=== PATIENT | female | born 1955 | race Caucasian/White ===

== ENCOUNTER → 2018-01-10 10:21 | Outpatient (CLI) | payer OTHER, SELFPAY ==
--- NOTE | 2018-01-10 10:28 | US_ITS ---
STUDY: ULTRASOUND OF THE FEMALE PELVIS - COMPLETE REASON FOR EXAM: Female, 62 years old. Postmenopausal bleeding. LMP: The patient is postmenopausal. TECHNIQUE: Transabdominal and Transvaginal TECHNICAL QUALITY: Adequate. COMPARISON: None. FINDINGS: The uterus is retroverted and is in a midline position. The uterus measures 5.3 cm x 5.0 cm x 2.3 cm. Normal uterine cervix. The endometrium measures 3 mm in thickness, and is fluid distended. There is no demonstrated endometrial mass. There is no demonstrated myometrial mass. I.U.D. - The patient does not have an I.U.D. The right ovary is visualized. The right ovary measures 3.0 cm x 2.97 x 1.2 cm. There is no right ovarian cyst or ovarian mass. There is no visualized right adnexal mass or complex lesion. There is normal arterial and normal venous vascularity. The left ovary is visualized. The left ovary measures 2.2 cm x 1.5 cm x 1.1 cm. There is no left ovarian cyst or ovarian mass. There is no visualized left adnexal mass or complex lesion. There is normal arterial and normal venous vascularity. There is no fluid in the cul-de-sac. Polycystic ovary disease: No. US/Pelvic (Non ) IMPRESSION: Fluid filled endometrium. The endometrium measures 3 mm. Electronically Signed: Andrew Capps MD at 15:38 EDT Tel [phone], Service support ,
--- NOTE | 2018-01-10 10:28 | US_ITS ---
STUDY: ULTRASOUND OF THE FEMALE PELVIS - COMPLETE REASON FOR EXAM: Female, 62 years old. Postmenopausal bleeding. LMP: The patient is postmenopausal. TECHNIQUE: Transabdominal and Transvaginal TECHNICAL QUALITY: Adequate. COMPARISON: None. FINDINGS: The uterus is retroverted and is in a midline position. The uterus measures 5.3 cm x 5.0 cm x 2.3 cm. Normal uterine cervix. The endometrium measures 3 mm in thickness, and is fluid distended. There is no demonstrated endometrial mass. There is no demonstrated myometrial mass. I.U.D. - The patient does not have an I.U.D. The right ovary is visualized. The right ovary measures 3.0 cm x 2.97 x 1.2 cm. There is no right ovarian cyst or ovarian mass. There is no visualized right adnexal mass or complex lesion. There is normal arterial and normal venous vascularity. The left ovary is visualized. The left ovary measures 2.2 cm x 1.5 cm x 1.1 cm. There is no left ovarian cyst or ovarian mass. There is no visualized left adnexal mass or complex lesion. There is normal arterial and normal venous vascularity. There is no fluid in the cul-de-sac. Polycystic ovary disease: No. US/Transvaginal Non- IMPRESSION: Fluid filled endometrium. The endometrium measures 3 mm. Electronically Signed: Andrew Capps MD at 15:38 EDT Tel [phone], Service support ,
== END ==
PROVIDERS: Family Provider Family Medicine; PCP Family Medicine; Visit Provider Obstetrics & Gynecology
DX: N95.0 Postmenopausal bleeding (principal)
CPT/HCPCS: 76830; 76856; 93976

== ENCOUNTER 2018-03-03 08:38 | Day surgery (SDC) | payer OTHER, SELFPAY ==
--- NOTE | 2018-03-02 17:28 | PCM.HPOB.BLA ---
- Problem List (1) Post-menopausal bleeding Status: Acute Comment: us ordered if under 4 mm consider following. has severe cervical stenosis (2) Lichen sclerosus et atrophicus Status: Chronic Comment: clobetasol History and Physical Date of Admission: 03/03/18 Blood Pressure 110/70 Intake Visit Reasons: follow up Chief Complaint: PMB Follow Up Accredited Legal Secretary Required: No Is patient in pain?: No Allergies No Known Allergies Allergy (Verified 02/07/18 11:25) Medications clindamycin 2 % vaginal cream 1 appful VAGINAL QDAY 01/04/18 [History Confirmed 02/07/18] clobetasol 0.05 % topical ointment 1 applic TOPICAL QHS #30 g 01/04/18 [Rx Confirmed 02/07/18] misoprostol 200 mcg tablet 200 mcg PO QPCHS #2 tab 02/07/18 [Rx Confirmed 02/07/18] Is last menstrual period known: No Post menopausal: Yes Patient : No : No PFS Medical History Alopecia (Acute) Family History Mother Cancer lung-smoker Father Myocardial infarction Heart disease Social History Smoking Status: Never smoker alcohol intake: current details: social substance use type: does not use caffeine: Yes what type of physical activity do you participate in: walking seatbelt use: always do you feel safe at home: Yes additional social history: [employer]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 she had some PMB and has had intermittent vaginal infections which she takes occasional antibiotics for. she also has lichen sclerosus and has been taking clobetasol for this. Pregancy History 2 Elective abortions Hx Para 2 Spontaneous abortions Hx # Term Pregnancies Ectopic pregnancies Hx # Pregnancies Multiple births # of living children Past Pregnancies Del. Date Name GA/Weeks Outcome Route Bth Weight Infant Gen Labor Lgth Anesthesia Del Locatn Provider FOB Unknown 1977 Francisco Unknown 1978 Lizzette Ortiz Constitutional: Denies poor appetite, headache(s), fever(s), increased appetite, weight gain, weight loss or fatigue Cardio Card: Denies chest pain Resp Resp: Denies dyspnea or cough GI GI: Reports as per HPI; denies vomiting, nausea, abdominal pain or constipation : Reports as per HPI; denies urinary urgency, vaginal discharge, urinary frequency, vaginal itching, vaginal odor, vaginal dryness, urinary incontinence, urinary hesitancy, difficulty urinating, painful urination or nipple discharge Skin Skin/Breast: Denies breast lump, breast pain, breast skin changes, nipple discharge or change in hair Exam Const General: cooperative, healthy appearing, comfortable, no acute distress, well developed Nutritional Appearance: average body habitus Orientation: alert [facility] Head: normal to inspection, normocephalic Neck Neck: normal visual inspection, trachea midline Thyroid: thyroid normal Resp Effort & Inspection: normal respiratory effort GI Inspection: normal to inspection, non-distended Palpation: soft, no hepatosplenomegaly General: bladder normal to palpation External Female Exam: normal appearance of the urethra, abnormal external appearance (lichenification and fissures still present but reduced) Urethra: normal appearance of the urethra, normal palpation, no discharge Speculum Exam - Vagina: normal appearance of the vagina, normal vaginal discharge Speculum Exam - Cervix: normal appearance of the cervix, nontender Bimanual Exam- Vagina & Uterus: bladder normal to palpation, No cervical tenderness, normal bimanual exam, uterine size normal, uterine shape normal, uterine mobility normal, uterine consistency normal, normal cervical palpation, uterus non-tender Bimanual Exam- Adnexa, other: normal adnexae, adnexae mobile, no adnexal masses, pelvic support normal Pelvic Support: normal Skin General: no rashes or lesions noted Assessment & Plan Problems 1. Post-menopausal bleeding N95.0 us ordered if under 4 mm consider following. has severe cervical stenosis 2. Lichen sclerosus et atrophicus L90.0 clobetasol Plan plan d and c hysteroscopy. discussed surgical risks including risks of anesthesia, infection, bleeding, injury to bowel, bladder or blood vessels, and patient wishes to proceed with surgery. Medications New: misoprostol (Cytotec) take the night before and the morning of 200 mcg PO QPCHS UPDATE- I have seen the patient and performed any clinically relevant updates to the history and physical exam. Radha Thompson MD
--- NOTE | 2018-03-03 | EMB_PTH ---
PATIENT: ANA LAURA DANIELS LOC: [facility] [place] U#:[id number] AGE/SX: 62/F ROOM: RE03/03/[address]: Dr. Radha Thompson MD : 1955 BED: DIS: 03/03/2018 SPEC #: [id number] RECD: 03/03/18 14:57 STATUS: CHARAN EWELINA #: [id number] HANANE: 03/03/18 00:[address]: Radha Thompson DEPT: SURGICAL PATHOLOGY RECD BY: Elroy Roe ENTERED: 03/03/18 14:57 SP TYPE: ENDOM BX/C OTHR DR: Dr. Dominik Dupree MD Tissues: Endometrium, NOS Procedures: Surgery Specimen Level IV HEADER OPERATION: Hysteroscopy, dilation and curettage PRE-OP DIAGNOSIS: Postmenopausal bleeding TISSUE SUBMITTED: Endometrial curettings MICROSCOPIC DIAGNOSIS Endometrial curettings: Strips of benign endometrial epithelium and superficial fragments of benign endometrial tissue, consistent with atrophic endometrium. Fragments of benign ectocervical epithelium. ANUJ:maria eugenia 03/04/18 MICROSCOPIC DESCRIPTION Slides are reviewed. GROSS DESCRIPTION Received in fixative is one container labeled with the patient's name and designated endometrial curettings. The specimen consists of multiple irregular fragments of reza-pink soft tissue that in aggregate measure 2 x 0.5 x <0.1 cm. The specimen is totally submitted in one cassette. / ANUJ:maria eugenia 03/03/18 TC:4 CPT: 56613
[2018-03-03 09:05] VITALS: BP 150/78; PULSE 76; RESP 16; TEMP 36.5; O2SAT 100; BMI 21.8
[2018-03-03 09:14] LABS: Hematocrit 43.5 % (37-47); Hemoglobin 14.6 g/dl (12.0-15.0); Mean Corp Hgb Conc 33.6 g/gl (32-36); Mean Corpuscular Hgb 29.5 pg (27.0-32.0); Mean Corpuscular Volume 87.9 fL (81-99); Mean Platelet Vol. 10.9 fl (6.2-12.0); Platelet Count 251 K/mm3 (150-450); RBC Distribution Width CV 12.5 % (11.6-14.6); RBC Distribution Width SD 39.9 fl (35.1-43.9); Red Blood Count 4.95 M/mm3 (4.2-5.4)
[2018-03-03 09:16] LABS: Scan Indicated on CBC? Y/N NO
[2018-03-03 11:53] VITALS: BP 124/71; BP 150/78; PULSE 74; RESP 16; TEMP 37.6; O2SAT 97
[2018-03-03 12:00] VITALS: BP 147/85; BP 150/78; PULSE 73; RESP 16; O2SAT 96
[2018-03-03 12:05] VITALS: BP 146/77; BP 150/78; PULSE 74; RESP 16; O2SAT 97
[2018-03-03 12:09] VITALS: BP 144/74; BP 150/78; PULSE 69; RESP 16; TEMP 37.7
--- NOTE | 2018-03-03 13:49 | PCM.DC.D&C ---
Discharge Diet: No Restrictions Discharge Activity: Return to Normal Activity, May Shower, May Take a Tub Bath Allergies/Adverse Reactions: Allergies No Known Allergies Allergy (Verified 02/24/18 13:08) Medications to take at Discharge clindamycin 2 % vaginal cream 1 appful VAGINAL QDAY PRN 01/04/18 clobetasol 0.05 % topical ointment 1 applic TOPICAL QHS #30 g 01/04/18 Multivitamin [Multiple Vitamins] 1 each PO DAILY 02/24/18 Primary Care Physician: Dominik Dupree MD [Primary Care Provider] - Test Results: Test results from this visit will be discussed in further detail at your follow-up appointment, if applicable. Please Follow Up With: Radha Thompson MD - [phone]
[2018-03-03 13:55] VITALS: BP 150/78
--- NOTE | 2018-03-03 17:04 | PCM.OPRPT ---
Problem List (1) Post-menopausal bleeding Status: Acute Comment: us ordered if under 4 mm consider following. has severe cervical stenosis (2) Lichen sclerosus et atrophicus Status: Chronic Comment: clobetasol Report of Operation Date of Procedure: 03/03/18 Pre-Operative Diagnosis: pmb Post-Operative Diagnosis: same Surgery/Procedure Performed:: D&C hysteroscopy Type of Anesthesia:: Local MAC Special Medications: None Specimen's removed: EMC Drains: None Estimated Blood Loss (mL): Minimal Fluids Replaced: Crystalloid Description of Procedure: Patient was prepped and draped in a normal sterile fashion under MAC anesthesia. A weighted speculum was placed in the vagina and the anterior lip of the cervix was grasped with a single-tooth tenaculum. A paracervical block was placed with 1% lidocaine. Cervix was progressively dilated to allow passage of a 5 mm hysteroscope. The lining was fully visualized and noted to have a thin atrophic lining. Uterine sounded to 7 cm. Curettage was performed and minimal amount of tissue was obtained, sent to pathology. All instruments were removed from the vagina and excellent hemostasis was noted. Patient was awoken and taken to recovery in stable condition. Grafts/Implants Used: None - Complications None
== END 2018-03-03 13:57 | disposition home or self-care (01) ==
LOC: SDC 08:39 → AC 08:40
PROVIDERS: Family Provider Family Medicine; PCP Family Medicine; Visit Provider Obstetrics & Gynecology
PROC: 0UDB8ZZ Extraction of Endometrium, Via Natural or Artificial Opening Endoscopic (ICD-10-PCS; CPT 58558; principal; 2018-03-03 10:35)
DX: N95.0 Postmenopausal bleeding (principal); L90.0 Lichen sclerosus et atrophicus; Z79.899 Other long term (current) drug therapy
CPT/HCPCS: 58558; 36415; 85027; 86850; 86900; 88305; J7120; J2405

== ENCOUNTER → 2018-05-02 15:43 | Outpatient (CLI) | payer OTHER, SELFPAY | PROVIDERS: Family Provider Family Medicine; PCP Family Medicine; Referring Provider Otolaryngology Otolaryngology/Facial Plastic Surgery; Visit Provider Otolaryngology Otolaryngology/Facial Plastic Surgery | DX: B37.0 Candidal stomatitis (principal) | CPT/HCPCS: 87070 ==

== ENCOUNTER 2018-06-21 15:23 | Emergency (ER) | payer OTHER, SELFPAY ==
[2018-06-21 15:24] VITALS: BP 155/81; PULSE 89; RESP 16; TEMP 36.6; O2SAT 97; BMI 21.2
--- NOTE | 2018-06-21 15:35 | ED.VISSUMM ---
- ER Visit Summary Date of Service: 06/21/18 Chief Complaint: Right wrist injury History of Present Illness: The patient is a 62 F [id number] presents right wrist injury occurring at noon today. Stepped on a hover board, fell off on outstretched hand. No head injuries. Pain in wrist with movement. No paresthesias. No history of fractures. States minimal tenderness left wrist. Has been icing. No other complaints. Good prognosis Physical Examination: General: Alert and oriented ?3, no acute distress HEENT: Normocephalic, atraumatic. Moist mucosa membranes Neck: supple, nontender. Cardiovascular: Regular rate and rhythm, no murmurs Respiratory: Normal breath sounds, symmetric, no distress Abdomen: Soft, nontender, nondistended Extremities: Right upper extremity: No elbow pain. There is no deformities or swelling of the dorsal wrist with pain at the snuffbox. Skin intact. No distal radius or ulnar styloid tenderness. No hand tenderness. Left upper extremity: No deformities, no reproducible bony tenderness. No snuffbox tenderness. No hand tenderness. Skin intact. Neuro: no focal neurological deficits. Test Results: Right wrist: Possible nondisplaced fracture oblique view of the scaphoid reviewed by myself Emergency Department Course and Treatment: Patient clinically with a scaphoid fracture with swelling tenderness. Declined any pain medicines. Ice was placed. X-rays reviewed by myself, and oblique view had concerns of possible nondisplaced fracture not seen on other views. There is no dislocation. Discussed findings with the patient, she is placed into a plaster thumb spica for immobilization. She is given follow-up with on-call orthopedics Dr. Esau Arvizu. She will use Tylenol or Motrin as needed. All questions were answered. Treatment Plan: [] Disposition: Discharge Impression: Closed right clinical scaphoid fracture This note was generated with [employer] dictation software. It may contain incorrect words, spelling, and punctuation that were not noted in review of the chart prior to signing ED Disposition - Plan for ED Patient: Disposition: Home or Assisted Living Chief Complaint: Upper Extremity Injury Diagnosis: Scaphoid fracture, wrist, closed Instructions: ED Fx Wrist Navicular Poss Referrals: Dominik Dupree MD [Primary Care Provider] - Esau Arvizu MD [STAFF PHYSICIAN] - 3-5 Days Additional Instructions: Questionable fracture on oblique view of radiographs. Maintain immobilization. She is allergic follow-up with Dr. Esau Arvizu.
--- NOTE | 2018-06-21 15:37 | RAD_ITS ---
STUDY: X-RAY - RIGHT WRIST REASON FOR EXAM: Female, 62 years old. TECHNIQUE: 3 view(s) of the wrist were obtained. COMPARISON: None. FINDINGS: Normal visualized distal radius and ulna. Normal radiocarpal articulation. Normal distal radioulnar articulation. Normal carpal bones. Normal carpal articulations. Normal carpometacarpal articulation of the thumb. Normal second through fifth carpometacarpal articulations. Normal visualized metacarpal bones. The soft tissue structures are unremarkable. RAD/Wrist min 3 Views IMPRESSION: Normal x-ray examination of the wrist. Electronically Signed: Lena Farley, at 16:08 EST Tel , Service support ,
== END 2018-06-21 16:17 | disposition home or self-care (01) ==
PROVIDERS: Emergency Provider Emergency Medicine; Family Provider Family Medicine; PCP Family Medicine
DX: S62.009A Unspecified fracture of navicular [scaphoid] bone of unspecified wrist, initial encounter for closed fracture (principal); W18.01XA Striking against sports equipment with subsequent fall, initial encounter; Y93.89 Activity, other specified; Y92.9 Unspecified place or not applicable; Y99.9 Unspecified external cause status
CPT/HCPCS: 73110; 99282

== ENCOUNTER → 2019-01-27 12:31 | Outpatient (CLI) | payer OTHER, SELFPAY ==
[2019-01-27 09:00] VITALS: BMI 22.3
[2019-01-31 16:36] LABS: HPV APTIMA, High Risk Negative (Negative)
== END ==
PROVIDERS: Family Provider Family Medicine; PCP Family Medicine; Referring Provider Obstetrics & Gynecology; Visit Provider Obstetrics & Gynecology
DX: Z12.4 Encounter for screening for malignant neoplasm of cervix (principal)
CPT/HCPCS: 87624; 88175; G0145

== ENCOUNTER → 2019-02-07 12:51 | Outpatient (CLI) | payer OTHER, SELFPAY ==
[2019-01-23 13:04] VITALS: BMI 22.3
[2019-01-27 09:00] VITALS: BMI 22.3
--- NOTE | 2019-02-07 12:57 | BI_ITS ---
MAMMOGRAPHY - BILATERAL SCREENING REASON FOR EXAM: Female, 63 years old. Routine annual screening examination. PERTINENT HISTORY: Grandmother with breast cancer. TECHNIQUE: Digital bilateral breast tera (3D mammographic acquisition) in the CC and MLO projections. 2-D mediolateral oblique (MLO) and craniocaudad (CC) views of both breasts were obtained. CAD: Full Field Digital Mammography with Computer Added Detection was performed. COMPARISON: Comparison is made with prior abdomen examination dated April 08, 2016. FINDINGS: Breast Composition: The breasts are heterogeneously dense, which may obscure small masses. There are no dominant masses or suspicious calcifications. Benign-appearing bilateral axillary lymph nodes. No other significant abnormalities are identified. There has been no significant change since the prior study. BI/SCREEN MAMM (CAD) W/TERA BILAT IMPRESSION: Stable bilateral screening mammogram. Yearly follow-up mammogram recommended. (A) ASSESSMENT CATEGORY: BIRADS Category 2: Benign. A letter regarding these results will be sent to the patient by the facility within 30 days. Approximately 10% of breast cancers are not detected by mammography. A normal mammogram should not delay biopsy of a clinically suspicious abnormality. [id number] Electronically Signed: Andrew Capps, at 14:11 EDT , Service support ,
--- NOTE | 2019-02-07 13:03 | BD_ITS ---
STUDY: DUAL ENERGY X-RAY ABSORPTIOMETRY / DXA REASON FOR EXAM: Female, 63 years old. The patient is postmenopausal. No loss of height. TECHNIQUE: Bone Mineral Density (BMD) measurements of lumbar spine and bilateral hips were obtained. COMPARISON: None. FINDINGS: Lumbar Spine (L1-L4): g/cm2 (0.774) / T-score (-3.4) / Z-score (-1.9) Findings are suggestive of osteoporosis with a high fracture risk. Left Femur Total: g/cm2 (0.758) / T-score (-2.0) / Z-score (-0.9) Left Femoral Neck: g/cm2 (0.704) / T-score (-2.4) / Z-score (-1.0) Right Femur Total: g/cm2 (0.755) / T-score (-2.0) / Z-score (-0.9) Right Femoral Neck: g/cm2 (0.734) / T-score (-2.2) / Z-score (-0.8) BD/Dexa Bone Density Study IMPRESSION: The patient is considered osteoporotic as outlined below according to World Shamar Organization (WHO) criteria with a high fracture risk. Reference Information: The T-score is the number of standard deviations above or below the standard which is normal for young adults at their peak bone mineral density. The World Health Organization (WHO) interprets the T-scores as follows: Above -1 Normal bone density Between -1 and -2.5 Osteopenia Equal to / or below -2.5 Osteoporosis As a practical clinical guideline, osteopenia may be graded as follows: Mild -1 through -1.5 Moderate -1.6 through -2.0 Severe -2.1 through -2.4 The Z-score is the number of standard deviations above or below age-matched controls. A Z-score of less than -1.5 would be considered abnormal. References: 1. NIH Osteoporosis and Related Bone Diseases http://www.osteo.org 2. International Society for Clinical Densitometry http://www.iscd.org 3. National Osteoporosis Foundation http://www.nof.org Electronically Signed: Andrew Capps, at 15:51 EDT , Service support ,
== END ==
PROVIDERS: Family Provider Family Medicine; PCP Family Medicine; Referring Provider Obstetrics & Gynecology; Visit Provider Obstetrics & Gynecology
DX: Z12.31 Encounter for screening mammogram for malignant neoplasm of breast (principal); Z80.3 Family history of malignant neoplasm of breast; Z78.0 Asymptomatic menopausal state
CPT/HCPCS: 77063; 77067; 77080

== ENCOUNTER 2020-04-13 08:43 | Emergency (ER) ==
--- NOTE | 2020-04-13 08:55 | ED.DCSUM_ITS ---
History of Present Illness Chief Complaint: Upper Extremity Injury Informant: Patient Onset: Yesterday Narrative: Patient tripped and fell last evening around 1930 hrs. sustaining a FOOSH injury to the left wrist. She states that she previously had a broken right wrist /hand. She states that the left wrist today does not feel normal and reminds her when she broke it. She denies any significant swelling. She has full range of motion. She tells me she took some Tylenol and wonders if she should have because she is moving it pretty well. She states she just wants to make sure. Past Medical History - Allergies and Home Meds Allergies/Adverse Reactions: Allergies No Known Allergies Allergy (Verified 04/13/20 08:46) Primary Care Physician: Dominik Dupree MD [Primary Care Provider] - Prior records reviewed: Yes Surgical History: noncontributory Lives: With Family Smoking Status: Never smoker Drugs: None Review of Systems General: Denies: Chills, Fever, Sweats Eyes: Denies: Visual changes - bilaterally, Diplopia ENT: Denies: Rhinorrhea, Sore throat Cardiovascular: Denies: Chest pain, Palpitations Respiratory: Denies: Dyspnea, Cough, Dyspnea on exertion Gastrointestinal: Denies: Abdominal pain, Nausea, Vomiting, Diarrhea, Melena, Hematochezia Genitourinary: Denies: Dysuria, Hematuria, Frequency Musculoskeletal: Reports: Extremity Pain. Denies: Back pain Skin: Denies: Rash, Wounds Neurological: Denies: Headache, Weakness, Numbness Physical Exam Vital Signs/Narrative: Vital Signs Temp Pulse Resp BP 04/13/20 08:44 97.1 F L 100 16 151/94 H Inital Vital Signs reviewed: Yes General: Well nourished, Well developed, No Acute Distress Head: Normocephalic, Atraumatic Eyes: Perrl, EOMI ENT: Moist mucous membranes, No rhinorrhea Neck: Supple, Nontender Cardiovascular: Regular rate, Regular rhythm, No murmurs Respiratory: No distress, CTA bilaterally, Chest nontender Abdomen: Soft, Nontender, Nondistended, Normal bowel sounds Back: Nontender, Normal Inspection Extremities: No edema, Tenderness - Small area of ecchymosis over the lateral volar aspect of the wrist. Full range of motion. Normal opposition. NVI Skin: Normal color, No rash Neurological: Alert, Oriented x3, Cranial nerves II-XII grossly intact, Normal Strength, Normal Sensation Psychological: Normal affect, Normal Mood Diagnostic/Tx/Re-eval - Medical Decision Making X-rays were negative for fracture. Patient will be discharged home with supportive care follow-up with primary care 10 to 14 days if not improved. ED Disposition - Plan for ED Patient: Disposition: Home or Assisted Living Diagnosis: Left wrist sprain Instructions: ED Sprain Wrist Referrals: Dominik Dupree MD [Primary Care Provider] - 10-14 Days if not better
--- NOTE | 2020-04-13 09:05 | RAD_ITS ---
STUDY: X-RAY - LEFT WRIST REASON FOR EXAM: Female, 64 years old patient with left-sided wrist pain after yesterday. TECHNIQUE: 3 view(s) of the wrist were obtained. COMPARISON: None. FINDINGS: There is demineralization of the radius and ulna. Normal radiocarpal articulation. Normal distal radioulnar articulation. There is demineralization of the carpal bones. There appear to be small erosions involving the scaphoid. Normal carpal articulations. Normal carpometacarpal articulation of the thumb. Normal second through fifth carpometacarpal articulations. There is demineralization of the metacarpal bones. There is a small erosion within the proximal first metacarpal. There is moderate soft tissue swelling. There is no demonstrated acute fracture. RAD/Wrist min 3 Views IMPRESSION: 1. Osteoporosis with soft tissue swelling. 2. No definite evidence for acute fracture. 3. If there is still clinical concern for acute fracture, follow-up radiographs in 7-10 days maybe helpful in evaluating a healing radiographically occult fracture. Electronically Signed: Bettina Arvizu MD at 10:10 EDT , Service support ,
[2020-04-13 10:27] VITALS: RESP 16
--- NOTE | 2020-04-13 10:28 | ED.RN ---
lexis wrap applied to pt's left wrist, pt tolerated well. msp's intact post wrap.
== END 2020-04-13 10:29 | disposition home or self-care (01) ==
DX: S63.502A Unspecified sprain of left wrist, initial encounter (principal); W01.0XXA Fall on same level from slipping, tripping and stumbling without subsequent striking against object, initial encounter
CPT/HCPCS: 73110; 99281; 99283

== ENCOUNTER → 2020-05-17 10:53 | Outpatient (CLI) | payer OTHER, SELFPAY ==
[2020-04-13 08:44] VITALS: BMI 21.9
[2020-05-17 13:03] LABS: Vitamin D,25 Hydroxy 28.7 ng/mL
[2020-05-17 13:06] LABS: Anion Gap 4 (5-15); BUN 13 mg/dL (7-18); BUN/Creat Ratio 21.7 RATIO (10-20); Calcium,Total 9.3 mg/dL (8.5-10.1); Chloride 107 mmol/L (98-107); EST Glomerular Filtration Rate 107 mL/min (>60); Est Glom Filt Rate - Afr Amer 129 mL/min (>60); Glucose 76 mg/dL (74-106); Potassium 3.8 mmol/L (3.5-5.1); Sodium Level 139 mmol/L (136-145); T4 Free Direct 0.89 ng/dL (0.76-1.46); Thyroid Stim Hormone (TSH) 2.63 uIU/mL (0.358-3.74)
== END ==
PROVIDERS: PCP Family Medicine; Visit Provider Family Medicine
DX: E78.5 Hyperlipidemia, unspecified (principal); M85.80 Other specified disorders of bone density and structure, unspecified site
CPT/HCPCS: 36415; 80048; 82306; 84439; 84443

== ENCOUNTER → 2020-10-16 08:43 | Outpatient (CLI) | payer MEDICARE, OTHER, SELFPAY ==
[2020-04-13 08:44] VITALS: BMI 21.9
--- NOTE | 2020-10-16 08:54 | CDU_ITS ---
Reason For Study: BRUIT Rt. Velocities/BP Lt. Velocities/BP Prox CCA 110/23 cm/sec. Prox CCA 120/29 cm/sec. Mid CCA 94/19 cm/sec. Mid CCA 120/30 cm/sec. Dist CCA 87/19 cm/sec. Dist CCA 118/30 cm/sec. Prox ICA 59/23 cm/sec. Prox ICA 88/27 cm/sec. Mid ICA 80/31 cm/sec. Mid ICA 101/36 cm/sec. Dist ICA 60/21 cm/sec. Dist ICA 107/36 cm/sec. Rt. ICA/CCA = .8. Lt. ICA/CCA = .9. Prox ECA 84/12 cm/sec. Prox ECA 94/14 cm/sec. Rt. Vert. 58/14 cm/sec. Lt. Vert. 91/27 cm/sec. Right Extracranial There is homogeneous, smooth atherosclerotic plaque noted in the right common carotid artery. There is homogeneous, smooth atherosclerotic plaque noted in the right internal carotid artery. There is intimal thickening but no significant atherosclerotic plaque noted in the right external carotid artery. Antegrade flow is noted in the right vertebral artery. There is heterogeneous, irregular atherosclerotic plaque noted in the right bulb. Left Extracranial There is homogeneous, smooth atherosclerotic plaque noted in the left common carotid artery. There is heterogeneous, irregular atherosclerotic plaque noted in the left internal carotid artery. There is homogeneous, smooth atherosclerotic plaque noted in the left external carotid artery. Antegrade flow is noted in the left vertebral artery. Procedure Carotid Duplex [id number]. Exam performed in department. VL/Carotid Duplex Ultrasound Interpretation Summary Mild (<50%) stenosis right extracranial internal carotid. Mild (<50%) stenosis left extracranial internal carotid. Flow within the vertebral arteries is antegrade bilaterally. Heterogeneous, irregular atherosclerotic plaque is noted in the right carotid bulb, which does not appear to be hemodynamically significant. Ordering Physician: Dominik Dupree Referring Physician: Dominik Dupree Performed By: Jyoti Sosa, ARLYN, RVT
== END ==
PROVIDERS: PCP Family Medicine; Referring Provider Family Medicine; Visit Provider Family Medicine
DX: I65.22 Occlusion and stenosis of left carotid artery (principal)
CPT/HCPCS: 93880

== ENCOUNTER 2021-09-01 09:46 | Outpatient (CLI) | payer MEDICARE, OTHER, SELFPAY ==
--- NOTE | 2021-09-01 09:53 | BI_ITS ---
MAMMOGRAPHY - BILATERAL SCREENING REASON FOR EXAM: Female, 66 years old. Routine annual screening examination. PERTINENT HISTORY: Grandmother with breast cancer. TECHNIQUE: Digital bilateral breast tera (3D mammographic acquisition) in the CC and MLO projections. 2-D mediolateral oblique (MLO) and craniocaudad (CC) views of both breasts were obtained. CAD: Full Field Digital Mammography with Computer Added Detection was performed. COMPARISON: Comparison is made with prior study 02/07/2019. FINDINGS: Breast Composition: The breasts are heterogeneously dense, which may obscure small masses. There are no dominant masses or suspicious calcifications. Stable small benign-appearing bilateral axillary lymph nodes. No other significant abnormalities are identified. There has been no significant change since the prior study. BI/SCRN MAMM (CAD)W/TERA BILAT IMPRESSION: Stable bilateral screening mammogram. Yearly follow-up mammogram recommended. (A) ASSESSMENT CATEGORY: BIRADS Category 2: Benign. A letter regarding these results will be sent to the patient by the facility within 30 days. Approximately 10% of breast cancers are not detected by mammography. A normal mammogram should not delay biopsy of a clinically suspicious abnormality. [id number] Electronically Signed: Andrew Capps MD at 10:54 EST ,
== END 2021-09-01 23:59 | disposition home or self-care (01) ==
LOC: OPBI 09:47
PROVIDERS: PCP Family Medicine; Visit Provider Obstetrics & Gynecology
DX: Z12.31 Encounter for screening mammogram for malignant neoplasm of breast (principal); Z80.3 Family history of malignant neoplasm of breast
CPT/HCPCS: 77063; 77067

== ENCOUNTER 2021-09-10 07:58 | Outpatient (CLI) | payer MEDICARE, OTHER, SELFPAY | END 2021-09-10 23:59 | disposition home or self-care (01) | PROVIDERS: PCP Family Medicine; Visit Provider Obstetrics & Gynecology | DX: R30.0 Dysuria (principal) | CPT/HCPCS: 87086; 87088 ==

== ENCOUNTER → 2021-12-03 | Outpatient (CLI) | payer MEDICARE, OTHER, SELFPAY ==
[2021-12-03 08:49] LABS: Cholesterol 240 mg/dL (200); High Density Lipoprotein 102 mg/dL; Triglycerides 71 mg/dL; Very Low Density Lipoprotein 14 mg/dL (5-40)
[2021-12-03 08:53] LABS: Absolute Neutrophil Count 3.3 X10^3/uL (2.0-7.7); Basophil# 0.02 X10^3/uL; Basophil% 0.4 % (0-1); Eosinophil# 0.18 X10^3/uL; Eosinophils% 3.3 % (0-5); Hematocrit 43.5 % (37-47); Hemoglobin 14.2 g/dL (12.0-15.0); Lymphocyte % 27.7 % (19-41); Mean Corp Hgb Conc 32.6 g/dL (32-36); Mean Corpuscular Volume 88.8 fL (81-99); Mean Platelet Vol. 11.1 fl (6.2-12.0); Monocyte# 0.44 X10^3/uL; Monocyte% 8.1 % (0-10); NRBC Flagged by Analyzer 0 % (0-5); Neutrophil # 3.26 X10^3/uL (2.7-7.7); Neutrophil % 60.1 % (47-70); Platelet Count 245 K/mm3 (150-450); RBC Distribution Width CV 12.1 % (11.6-14.6); White Blood Count 5.4 K/mm3 (4.4-11.0)
[2021-12-03 09:01] LABS: Hemoglobin A1c 5.1 % (3.8-5.6)
[2021-12-03 09:25] LABS: Thyroid Stim Hormone (TSH) 3.07 uIU/mL (0.358-3.74)
== END | disposition home or self-care (01) ==
LOC: PAVLAB 08:07
PROVIDERS: PCP Family Medicine; Referring Provider Obstetrics & Gynecology; Visit Provider Obstetrics & Gynecology
DX: Z13.29 Encounter for screening for other suspected endocrine disorder (principal); Z13.0 Encounter for screening for diseases of the blood and blood-forming organs and certain disorders involving the immune mechanism; Z13.1 Encounter for screening for diabetes mellitus; Z13.220 Encounter for screening for lipoid disorders
CPT/HCPCS: 36415; 80061; 83036; 84443; 85025

== ENCOUNTER → 2021-12-04 | Outpatient (CLI) | payer MEDICARE, OTHER, SELFPAY ==
[2021-12-04 13:35] LABS: Vitamin D,25 Hydroxy 74.5 ng/mL
== END | disposition home or self-care (01) ==
PROVIDERS: PCP Family Medicine; Referring Provider Obstetrics & Gynecology; Visit Provider Obstetrics & Gynecology
DX: Z13.21 Encounter for screening for nutritional disorder (principal)
CPT/HCPCS: 36415; 82306

== ENCOUNTER → 2022-07-02 | Outpatient (CLI) | payer MEDICARE, OTHER, SELFPAY ==
[2022-07-02 10:27] LABS: Absolute Lymphocyte Count 1.53 X10^3/uL (0.83-4.51); Absolute Neutrophil Count 3.3 X10^3/uL (2.0-7.7); Basophil# 0.05 X10^3/uL; Basophil% 0.9 % (0-1); Eosinophil# 0.16 X10^3/uL; Hematocrit 44.3 % (37-47); Hemoglobin 14.6 g/dL (12.0-15.0); Lymphocyte # 1.53 X10^3/ul (0.83-4.51); Lymphocyte % 28.9 % (19-41); Mean Corpuscular Hgb 29.2 pg (27.0-32.0); Mean Corpuscular Volume 88.6 fL (81-99); Mean Platelet Vol. 11.3 fl (6.2-12.0); Monocyte% 5.7 % (0-10); NRBC Flagged by Analyzer 0 % (0-5); Neutrophil # 3.25 X10^3/uL (2.7-7.7); Neutrophil % 61.5 % (47-70); Platelet Count 280 K/mm3 (150-450); RBC Distribution Width SD 38.5 fl (35.1-43.9); White Blood Count 5.3 K/mm3 (4.4-11.0)
[2022-07-02 10:49] LABS: Fibrinogen 411 mg/dl (203-444); Insulin 7.7 mU/L (2.6-37.6); Vitamin D,25 Hydroxy 73.3 ng/mL
[2022-07-02 10:50] LABS: Hemoglobin A1c 5.2 % (3.8-5.6)
[2022-07-02 10:55] LABS: AST(SGOT) 20 U/L (15-37); Alanine Aminotransfer ALT/SGPT 28 U/L (13-56); Alkaline Phosphatase 55 U/L (45-117); Anion Gap 6 (5-15); BUN 15 mg/dL (7-18); BUN/Creat Ratio 23.5 RATIO (10-20); CRP, High Sensitivity Cardiac 0.75 mg/L; Calcium,Total 9.8 mg/dL (8.5-10.1); Chloride 105 mmol/L (98-107); Cholesterol 255 mg/dL (200); Creatinine, Serum 0.64 mg/dL (0.55-1.02); EST Glomerular Filtration Rate 99 mL/min (>60); Est Glom Filt Rate - Afr Amer 119 mL/min (>60); Ferritin 128 ng/mL (8-252); Free T3 2.8 pg/mL (2.18-3.98); GGTP 6 U/L (5-55); Globulin 3.9 g/dL (2.2-4.2); Glucose 86 mg/dL (74-106); High Density Lipoprotein 116 mg/dL; Iron 88 ug/dL (50-170); Iron Binding Capacity,Total 295 ug/dL (250-450); LDH 138 U/L (84-246); PERCENT IRON SATURATION 29.8 % (15.0-55.0); Potassium 3.3 mmol/L (3.5-5.1); Protein, Total 7.9 g/dL (6.4-8.2); Sodium Level 139 mmol/L (136-145); T3 Uptake 36 % (30-39); T4 Free Direct 0.86 ng/dL (0.76-1.46); T7 / Free Thyroxin Index 2.9 (1.4-4.5); Triglycerides 61 mg/dL; Uric Acid 3.2 mg/dL (2.6-6.0); Very Low Density Lipoprotein 12 mg/dL (5-40)
[2022-07-02 10:58] LABS: Erythrocyte Sedimentation Rate 13 mm/hr (0-30)
[2022-07-03 14:09] LABS: Anti-Centromere B Ab <0.2 AI (0.0-0.9); Anti-Chromatin <0.2 AI (0.0-0.9); Anti-Jo <0.2 AI (0.0-0.9); Anti-Scleroderma-70 AB <0.2 AI (0.0-0.9); RNP Ab 0.6 AI (0.0-0.9); SJOGREN'S Anti-SS-A test 6.2 AI (0.0-0.9); SJOGREN'S Anti-SS-B test < 0.2 AI (0.0-0.9); Smith Ab <0.2 AI (0.0-0.9)
[2022-07-03 20:16] LABS: Anti-dsDNA Ab 3 IU/mL (0-9)
[2022-07-07 09:08] LABS: Alkaline Phosphatase, Serum 63 IU/L (44-121); Bone Fraction 65 % (14-68); Ceruloplasmin 33.2 mg/dL (19.0-39.0); Insulin Like Growth Factor 70 ng/mL (52-196); Intestinal Fraction 1 % (0-18); LDH 145 IU/L (119-226); LDH Fraction 1 24 % (17-32); LDH Fraction 2 37 % (25-40); LDH Fraction 3 23 % (17-27); LDH Fraction 4 8 % (5-13); LDH Fraction 5 8 % (4-20); Liver Fraction 34 % (18-85); Thyroid Peroxidase AB 11 IU/mL (0-34)
[2022-07-09 21:40] LABS: Copper, Serum or Plasma 156 ug/dL (80-158); Thyroglobulin Antibody < 1.0 IU/mL (0.0-0.9)
== END | disposition home or self-care (01) ==
PROVIDERS: PCP Family Medicine
DX: F41.9 Anxiety disorder, unspecified (principal); G47.9 Sleep disorder, unspecified; Z13.29 Encounter for screening for other suspected endocrine disorder; Z13.220 Encounter for screening for lipoid disorders; Z13.9 Encounter for screening, unspecified; E56.9 Vitamin deficiency, unspecified; E61.9 Deficiency of nutrient element, unspecified; R51.9 Headache, unspecified; K59.00 Constipation, unspecified; R42 Dizziness and giddiness; L63.1 Alopecia universalis; R19.5 Other fecal abnormalities
CPT/HCPCS: 36415; 80053; 80061; 82306; 82390; 82525; 82533; 82728; 82977; 83036; 83525; 83540; 83550; 83615; 83625; 84075; 84080; 84305; 84436; 84439; 84443; 84479; 84481; 84482; 84550; 85025; 85384; 85652; 86141; 86225; 86235; 86376; 86800

== ENCOUNTER → 2022-09-03 | Outpatient (CLI) | payer MEDICARE, OTHER, SELFPAY ==
[2022-09-03 09:52] LABS: Fibrinogen 454 mg/dl (203-444)
[2022-09-03 09:57] LABS: Absolute Lymphocyte Count 1.48 X10^3/uL (0.83-4.51); Absolute Neutrophil Count 3.7 X10^3/uL (2.0-7.7); Basophil# 0.05 X10^3/uL; Basophil% 0.9 % (0-1); Eosinophil# 0.19 X10^3/uL; Eosinophils% 3.2 % (0-5); Hemoglobin 15.1 g/dL (12.0-15.0); Lymphocyte # 1.48 X10^3/ul (0.83-4.51); Lymphocyte % 25.3 % (19-41); Mean Corp Hgb Conc 32.1 g/dL (32-36); Mean Corpuscular Hgb 28.8 pg (27.0-32.0); Mean Corpuscular Volume 89.7 fL (81-99); Mean Platelet Vol. 10.6 fl (6.2-12.0); Monocyte# 0.38 X10^3/uL; Monocyte% 6.5 % (0-10); NRBC Flagged by Analyzer 0 % (0-5); Neutrophil # 3.73 X10^3/uL (2.7-7.7); Neutrophil % 63.8 % (47-70); Platelet Count 291 K/mm3 (150-450); RBC Distribution Width SD 39.1 fl (35.1-43.9); Red Blood Count 5.24 M/mm3 (4.2-5.4); White Blood Count 5.9 K/mm3 (4.4-11.0)
[2022-09-03 10:09] LABS: Erythrocyte Sedimentation Rate 13 mm/hr (0-30)
[2022-09-03 10:25] LABS: AST(SGOT) 22 U/L (15-37); Alanine Aminotransfer ALT/SGPT 23 U/L (13-56); Alkaline Phosphatase 67 U/L (45-117); Anion Gap 5 (5-15); BUN 13 mg/dL (7-18); BUN/Creat Ratio 17.5 RATIO (10-20); Calcium,Total 9.8 mg/dL (8.5-10.1); Chloride 106 mmol/L (98-107); Creatinine, Serum 0.74 mg/dL (0.55-1.02); EST Glomerular Filtration Rate 83 mL/min (>60); Est Glom Filt Rate - Afr Amer 100 mL/min (>60); Ferritin 127 ng/mL (8-252); Free T3 2.7 pg/mL (2.18-3.98); GGTP 5 U/L (5-55); Glucose 84 mg/dL (74-106); LDH 166 U/L (84-246); Potassium 3.7 mmol/L (3.5-5.1); Sodium Level 139 mmol/L (136-145); T3 Uptake 35 % (30-39); T4 Free Direct 0.89 ng/dL (0.76-1.46); T4 Total, Thyroxin 7.4 ug/dL (4.8-13.9); T7 / Free Thyroxin Index 2.6 (1.4-4.5); Thyroid Stim Hormone (TSH) 4.41 uIU/mL (0.358-3.74)
[2022-09-03 10:35] LABS: Homocysteine 6.7 umol/L (3.2-10.7)
[2022-09-05 05:07] LABS: Ceruloplasmin 33.4 mg/dL (19.0-39.0); Thyroid Peroxidase AB 9 IU/mL (0-34)
[2022-09-05 12:37] LABS: Copper, Serum or Plasma 180 ug/dL (80-158); Thyroglobulin Antibody < 1.0 IU/mL (0.0-0.9)
== END | disposition home or self-care (01) ==
LOC: MTLAB 07:02
PROVIDERS: PCP Internal Medicine; Referring Provider Internal Medicine; Visit Provider Internal Medicine
DX: F41.9 Anxiety disorder, unspecified (principal); G47.9 Sleep disorder, unspecified; E56.9 Vitamin deficiency, unspecified; E61.9 Deficiency of nutrient element, unspecified; L63.1 Alopecia universalis; R79.0 Abnormal level of blood mineral; E03.9 Hypothyroidism, unspecified
CPT/HCPCS: 80053; 82306; 82390; 82525; 82728; 82977; 83036; 83090; 83615; 84436; 84439; 84443; 84479; 84481; 84550; 85025; 85384; 85652; 86141; 86376; 86800

== ENCOUNTER 2022-10-20 10:24 | Emergency (ER) | payer MEDICARE, OTHER, SELFPAY ==
[2022-10-20 10:25] VITALS: BP 144/67; PULSE 102; RESP 18; TEMP 36.6; O2SAT 98; BMI 22.0
--- NOTE | 2022-10-20 10:43 | EKG12_ITS ---
Test Reason : CP Blood Pressure : / mmHG Vent. Rate : 085 BPM Atrial Rate : 085 BPM P-R Int : 154 ms QRS Dur : 082 ms QT Int : 372 ms P-R-T Axes : 064 -02 047 degrees QTc Int : 442 ms Normal sinus rhythm Normal ECG Confirmed by ISA DOTSON, MYRNA ([id number]), editor news PARUL GOMEZ ([id number]) on 10/22/2022 9:11:41 AM Referred By: NINOSKA Confirmed By:MYRNA MOSS MD
--- NOTE | 2022-10-20 10:58 | ED.VIS.CHEST ---
HPI History of Present Illness Chief Complaint: Chest Pain Detail of Chief Complaint: Chest pain Informant: patient Narrative Narrative: Patient presents with chest pain that started 2 weeks ago. Patient describes an intermittent sharp stabbing pain in the left chest that lasts a second or 2 and then resolves. She did not think much of it but she has a mammogram tomorrow and is unsure if that could cause her more discomfort. She denies recent travel or surgery other than she was traveling to [place] in July by car. Patient has family history of heart disease and that her father had an IA at age 66. Patient herself has not had any heart history. No history of PE or DVT. Patient denies recent illness. There is been no fever or cough. [facility] Medical History (Updated 10/20/22 @ 11:[address] Ra Salazar DO) Alopecia Right wrist fracture Home Medications ascorbate calcium (vitamin C) 500 mg tablet 500 mg PO DAILY 09/10/21 [History Last Taken Unknown] calcium carbonate 500 mg calcium (1,250 mg) tablet 500 mg PO DAILY 09/10/21 [History Last Taken Unknown] cholecalciferol (vitamin D3) 50 mcg (2,000 unit) capsule 50 mcg PO DAILY 09/10/21 [History Last Taken Unknown] magnesium oxide 500 mg capsule 500 mg PO DAILY 09/10/21 [History Last Taken Unknown] vitamin K2 45 mcg capsule 45 mcg PO DAILY 09/10/21 [History Last Taken Unknown] halobetasol propionate 0.05 % topical ointment 1 applic topical DAILY #15 grams 09/17/22 [Rx Last Taken Unknown] Allergy/AdvReac Type Severity Reaction Status Date / Time grass pollen Allergy PT UNABLE Verified 10/20/22 10:24 TO RESPOND-NEEDS F/U Family History Mother Cancer lung-smoker Father Myocardial infarction Heart disease Surgical History H/O dilation and curettage Social History Smoking Status: Former smoker alcohol intake: current details: social substance use type: does not use caffeine: Yes what type of physical activity do you participate in: walking frequency: 5-6 times per week seatbelt use: always do you feel safe at home: Yes additional social history: [employer]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 ROS ROS ED Review of Systems ROS Unobtainable: other Constitutional Constitutional ED: Reports lethargy; Denies chills, fever(s), sweats or weight loss Eyes Eyes: Denies blurry vision, change in vision or diplopia ENT ENT ED: Denies rhinorrhea or sore throat Cardiovascular Cardiovascular: Reports chest pain; Denies orthopnea or racing heartbeat Respiratory/Chest Respiratory/Chest: Denies cough, dyspnea, dyspnea on exertion, orthopnea or sputum Gastrointestinal Gastrointestinal: Denies abdominal pain, diarrhea, nausea or vomiting Genitourinary Genitourinary ED: Denies dysuria, hematuria or urinary frequency Musculoskeletal Musculoskeletal: Denies arthralgias, back pain, myalgias or neck pain Integumentary Denies abscess, Abrasions or rash Neurologic Neurologic: Denies headache(s) or weakness Psychiatric Psychiatric: Denies anxiety, depression or suicidal thoughts Endocrine Endocrinology: Denies polydipsia, polyphagia or polyuria Hematologic/Lymphatic Hematologic/Lymphatic: Denies easy bleeding, easy bruising or lymphadenopathy Allergic/Immunologic Allergic/Immunologic ED: Denies mouth swelling, tongue swelling or urticaria EXAM Physical Exam Const Vital Signs: 10/20/22 10:25 10/20/22 10:28 Temperature 97.8 F Temperature Source Temporal Pulse Rate 102 H Respiratory Rate 18 Respiratory Effort Normal Non-Labored Blood Pressure 144/67 H Blood Pressure Mean 92 Pulse Ox 98 Oxygen Delivery Method Room Air Positive well nourished and well developed General Appearance ED: well developed and NAD HEENT Reports TM's clear and moist mucous membranes normocephalic and atraumatic; Negative for trauma or tenderness Tympanic Membrane ED: Yes TM's clear Eyes PERRL and EOMs intact bilaterally General Eye ED: Negative for pale conjunctiva or scleral icterus Neck no lymphadenopathy, supple and no JVD General: Negative for tenderness Chest Wall inspection of chest normal and palpation of chest normal Chest: Negative for tenderness Resp normal respiratory effort and clear to auscultation bilaterally Effort and Inspection: Negative for respiratory distress or pain with movement Auscultation: Negative for rhonchi, wheezes or diminished lung sounds Cardio regular rate, regular rhythm, S1 normal heart sound, S2 normal heart sound and no murmurs Peripheral Pulses: pulses 2+ throughout GI normal to inspection, nondistended, normoactive bowel sounds, soft to palpation, non-tender, non-distended and no masses Back/Spine no CVA tenderness and no thoracic nor lumbar tenderness Extremity normal to inspection General Extremety ED: Negative for edema General Extremity: Negative for edema Neuro oriented x3, CN's II-XII intact bilaterally, no sensory deficits noted and gait normal Sensorium / Orientation: awake, alert, oriented to person, oriented to place and oriented to time Motor Exam: strength 5/5 throughout and strength abnormal Psych mental status grossly normal Skin no rashes or lesions noted and no wounds Heart Score History: Slightly/Non-Suspicious ECG: Normal Age: >/= 65 years Risk Factors: 1 or 2 Risk Factors Troponin: </= Normal Limit Score: 3 MDM MDM MDM Narrative Medical decision making narrative: Patient with chest discomfort x2 weeks intermittent and clinically sounds atypical. IV line established on arrival. 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 EKG obtained showed sinus rhythm with a rate of 85 bpm with no acute ST segment changes. CBC with differential was unremarkable and D-dimer was normal. Troponin normal. Chemistries unremarkable. Chest x-ray obtained showed no acute disease process on my interpretation. Patient's heart score is a 3. Suspicion for acute coronary syndrome is very low. I feel patient can be safely discharged to home. She will follow-up with her primary care physician as she has an appointment in 5 days. Patient discharged home stable condition. Lab Data Attestation: I reviewed the patient's lab results. Labs: Laboratory Results - last 24 hr 10/20/22 10/20/22 10/20/22 10:55 10:55 10:55 WBC 5.3 RBC 5.12 Hgb 14.8 Hct 45.6 MCV 89.1 MCH 28.9 MCHC 32.5 RDW Std Deviation 39.9 RDW Coeff of Reema 12.2 Plt Count 282 MPV 10.7 Immature Gran % (Auto) 0.400 Neut % (Auto) 71.5 H Lymph % (Auto) 20.9 Toombs % (Auto) 5.1 Eos % (Auto) 1.5 Baso % (Auto) 0.6 Absolute Neuts (auto) 3.8 Absolute Lymphs (auto) 1.11 Nucleated RBC % 0 D-Dimer Quant (PE/DVT) < 0.27 L Sodium 139 Potassium 3.6 Chloride 106 Carbon Dioxide 30.0 Anion Gap 3 L BUN 13 Creatinine 0.62 Estim Creat Clear Calc 41.19 Est GFR (MDRD) Af Amer 123 Est GFR (MDRD) Non-Af 102 BUN/Creatinine Ratio 20.9 H Glucose 93 Calcium 9.6 Troponin I High Sens 6 Radiography Diagnostic Testin view chest x-ray obtained interpreted by myself as no acute infiltrate or pneumothorax or acute disease process. Official report from radiology pending. EKG Initial EKG: Attestation: I personally reviewed and interpreted this EKG as follows: Comments: Sinus rhythm with a rate of 85 bpm with no acute ST segment changes Discharge Plan Triage Chief Complaint: Chest Pain ED Provider: Ra Salazar Dx/Rx/DC Orders Clinical Impression: Chest pain Instructions: ED Chest Pain, Uncertain Cause Prescriptions: No Action calcium carbonate 500 mg calcium (1,250 mg) tablet 500 mg PO DAILY ascorbate calcium (vitamin C) 500 mg tablet 500 mg PO DAILY cholecalciferol (vitamin D3) 50 mcg (2,000 unit) capsule 50 mcg PO DAILY magnesium oxide 500 mg capsule 500 mg PO DAILY vitamin K2 45 mcg capsule 45 mcg PO DAILY halobetasol propionate 0.05 % ointment 1 applic TOPICAL DAILY Qty: 15 3RF Rx Instructions: do not use occlusive dressing Primary Care Provider: Machelle Palma Referrals: Machelle Palma MD [Primary Care Provider] - 5-7 Days Disposition Disposition: Home, Self Care
[2022-10-20 11:05] LABS: Absolute Lymphocyte Count 1.11 X10^3/uL (0.83-4.51); Absolute Neutrophil Count 3.8 X10^3/uL (2.0-7.7); Basophil# 0.03 X10^3/uL; Basophil% 0.6 % (0-1); Eosinophil# 0.08 X10^3/uL; Eosinophils% 1.5 % (0-5); Hematocrit 45.6 % (37-47); Hemoglobin 14.8 g/dL (12.0-15.0); Lymphocyte # 1.11 X10^3/ul (0.83-4.51); Lymphocyte % 20.9 % (19-41); Mean Corp Hgb Conc 32.5 g/dL (32-36); Mean Corpuscular Hgb 28.9 pg (27.0-32.0); Mean Corpuscular Volume 89.1 fL (81-99); Mean Platelet Vol. 10.7 fl (6.2-12.0); Monocyte# 0.27 X10^3/uL; Monocyte% 5.1 % (0-10); NRBC Flagged by Analyzer 0 % (0-5); Neutrophil # 3.79 X10^3/uL (2.7-7.7); Neutrophil % 71.5 % (47-70); Platelet Count 282 K/mm3 (150-450); RBC Distribution Width CV 12.2 % (11.6-14.6); RBC Distribution Width SD 39.9 fl (35.1-43.9); Red Blood Count 5.12 M/mm3 (4.2-5.4); White Blood Count 5.3 K/mm3 (4.4-11.0)
[2022-10-20 11:23] LABS: Anion Gap 3 (5-15); BUN 13 mg/dL (7-18); BUN/Creat Ratio 20.9 RATIO (10-20); Calcium,Total 9.6 mg/dL (8.5-10.1); Chloride 106 mmol/L (98-107); Creatinine, Serum 0.62 mg/dL (0.55-1.02); D-Dimer Quantitative (DVT/PE) < 0.27 FEU/ug/m (0.27-0.49); EST Glomerular Filtration Rate 102 mL/min (>60); Est Glom Filt Rate - Afr Amer 123 mL/min (>60); Estimated Creatinine Clearance 41.19 ml/min; Glucose 93 mg/dL (74-106); Potassium 3.6 mmol/L (3.5-5.1); Sodium Level 139 mmol/L (136-145); Troponin-I HS 6 pg/mL (3.0-54.0)
--- NOTE | 2022-10-20 11:25 | RAD_ITS ---
EXAM: XR CHEST, 1 VIEW CLINICAL INDICATION: chest pain TECHNIQUE: Frontal view of the chest. This report was created using [employer] report generation technology. COMPARISON: None. FINDINGS: LUNGS AND PLEURAL SPACES: Normal. No consolidation or edema. No pneumothorax. No effusion. HEART: Normal heart size. MEDIASTINUM: No mediastinal or hilar mass. BONES/JOINTS: No acute abnormality. RAD/Chest 1 View (Portable) IMPRESSION: No acute cardiopulmonary disease. Electronically Signed: Gabe Goodman MD at 11:40 EDT ,
[2022-10-20 11:47] VITALS: BP 126/78; PULSE 84; RESP 18; TEMP 36.6; O2SAT 100
== END 2022-10-20 11:48 | disposition home or self-care (01) ==
LOC: ED 11:44
PROVIDERS: Emergency Provider Emergency Medicine; PCP Internal Medicine; Visit Provider Emergency Medicine
DX: R07.9 Chest pain, unspecified (principal); Z87.891 Personal history of nicotine dependence; Z82.49 Family history of ischemic heart disease and other diseases of the circulatory system
CPT/HCPCS: 71045; 80048; 84484; 85025; 85379; 93005; 99284; A4216

== ENCOUNTER → 2022-10-21 | Outpatient (CLI) | payer MEDICARE, OTHER, SELFPAY ==
--- NOTE | 2022-10-21 08:46 | BI_ITS ---
MAMMOGRAPHY - BILATERAL SCREENING REASON FOR EXAM: Female, 67 years old. Routine annual screening examination. PERTINENT HISTORY: Grandmother with breast cancer. TECHNIQUE: Digital bilateral breast tera (3D mammographic acquisition) in the CC and MLO projections. 2-D mediolateral oblique (MLO) and craniocaudad (CC) views of both breasts were obtained. CAD: Full Field Digital Mammography with Computer Added Detection was performed. COMPARISON: Comparison is made with prior study of September 01, 2021 and February 07, 2019. FINDINGS: Breast Composition: The breasts are heterogeneously dense, which may obscure small masses. There are no dominant masses or suspicious calcifications. No other significant abnormalities are identified. There has been no significant change since the prior study. BI/SCRN MAMM (CAD)W/TERA BILAT IMPRESSION: Stable bilateral screening mammogram. Yearly follow-up mammogram recommended. (A) ASSESSMENT CATEGORY: BIRADS Category 1: Negative. A letter regarding these results will be sent to the patient by the facility within 30 days. Approximately 10% of breast cancers are not detected by mammography. A normal mammogram should not delay biopsy of a clinically suspicious abnormality. [id number] Electronically Signed: Andrew Capps MD at 9:48 EDT ,
--- NOTE | 2022-10-21 08:52 | BD_ITS ---
STUDY: DUAL ENERGY X-RAY ABSORPTIOMETRY / DXA REASON FOR EXAM: Female, 67 years old. Post menopausal TECHNIQUE: Bone Mineral Density (BMD) measurements of lumbar spine and bilateral hips were obtained. COMPARISON: Comparison is made with prior study February 07, 2019. FINDINGS: Lumbar Spine (L1-L4): g/cm2 (0.646) / T-score (-4.1) / Z-score (-2.1) Findings are suggestive of osteoporosis with a high fracture risk. Left Femur Total: g/cm2 (0.704) / T-score (-2.0) / Z-score (-0.6) Left Femoral Neck: g/cm2 (0.551) / T-score (-2.7) / Z-score (-1.1) Right Femur Total: g/cm2 (0.711) / T-score (-1.9) / Z-score (-0.6) Right Femoral Neck: g/cm2 (0.645) / T-score (-1.8) / Z-score (-0.2) The T-Scores on the most recent prior examination were: Lumbar Spine (L1-L4): There has been worsening of bone density since the previous examination. Left Femur Total: which represents an improvement of 0.7%. Right Femur Total: which represents an improvement of 2.2%. BD/Dexa Bone Density Study IMPRESSION: The patient is considered osteoporotic as outlined below according to World Shamar Organization (WHO) criteria with a high fracture risk. There has been improvement of bone density since the previous examination. Reference Information: The T-score is the number of standard deviations above or below the standard which is normal for young adults at their peak bone mineral density. The World Health Organization (WHO) interprets the T-scores as follows: Above -1 Normal bone density Between -1 and -2.5 Osteopenia Equal to / or below -2.5 Osteoporosis As a practical clinical guideline, osteopenia may be graded as follows: Mild -1 through -1.5 Moderate -1.6 through -2.0 Severe -2.1 through -2.4 The Z-score is the number of standard deviations above or below age-matched controls. A Z-score of less than -1.5 would be considered abnormal. References: 1. NIH Osteoporosis and Related Bone Diseases www osteo.org 2. International Society for Clinical Densitometry www iscd.org 3. National Osteoporosis Foundation www nof.org Electronically Signed: Andrew Capps MD at 15:40 EDT ,
== END | disposition home or self-care (01) ==
LOC: OPBD 08:45
PROVIDERS: PCP Internal Medicine; Referring Provider Obstetrics & Gynecology; Visit Provider Obstetrics & Gynecology
DX: Z78.0 Asymptomatic menopausal state (principal); Z12.31 Encounter for screening mammogram for malignant neoplasm of breast; Z80.3 Family history of malignant neoplasm of breast
CPT/HCPCS: 77063; 77067; 77080

== ENCOUNTER → 2022-11-25 | Outpatient (CLI) | payer MEDICARE, OTHER, SELFPAY ==
[2022-11-25 11:06] LABS: Erythrocyte Sedimentation Rate 9 mm/hr (0-30)
[2022-11-25 11:09] LABS: Fibrinogen 451 mg/dl (203-444)
[2022-11-25 11:14] LABS: Absolute Lymphocyte Count 1.41 X10^3/uL (0.83-4.51); Basophil# 0.04 X10^3/uL; Basophil% 0.8 % (0-1); Eosinophil# 0.17 X10^3/uL; Eosinophils% 3.5 % (0-5); Hematocrit 41.3 % (37-47); Hemoglobin 13.3 g/dL (12.0-15.0); Lymphocyte # 1.41 X10^3/ul (0.83-4.51); Mean Corp Hgb Conc 32.2 g/dL (32-36); Mean Corpuscular Hgb 28.7 pg (27.0-32.0); Mean Corpuscular Volume 89.2 fL (81-99); Mean Platelet Vol. 11.6 fl (6.2-12.0); Monocyte# 0.28 X10^3/uL; Monocyte% 5.8 % (0-10); NRBC Flagged by Analyzer 0 % (0-5); Neutrophil # 2.96 X10^3/uL (2.7-7.7); Neutrophil % 60.9 % (47-70); Platelet Count 276 K/mm3 (150-450); RBC Distribution Width CV 12.4 % (11.6-14.6); RBC Distribution Width SD 40.1 fl (35.1-43.9); Red Blood Count 4.63 M/mm3 (4.2-5.4); White Blood Count 4.9 K/mm3 (4.4-11.0)
[2022-11-25 12:09] LABS: ALB/GLOB Ratio 1.1 RATIO (0.9-2.4); AST(SGOT) 30 U/L (15-37); Alanine Aminotransfer ALT/SGPT 29 U/L (13-56); Albumin, Serum 3.8 g/dL (3.2-5.0); Alkaline Phosphatase 66 U/L (45-117); Anion Gap 7 (5-15); BUN 11 mg/dL (7-18); BUN/Creat Ratio 17.8 RATIO (10-20); CRP, High Sensitivity Cardiac 0.46 mg/L; Calcium,Total 9.5 mg/dL (8.5-10.1); Chloride 107 mmol/L (98-107); Creatinine, Serum 0.62 mg/dL (0.55-1.02); EST Glomerular Filtration Rate 102 mL/min (>60); Est Glom Filt Rate - Afr Amer 124 mL/min (>60); Ferritin 54 ng/mL (8-252); Free T3 2.3 pg/mL (2.18-3.98); GGTP 12 U/L (5-55); Globulin 3.4 g/dL (2.2-4.2); Glucose 77 mg/dL (74-106); LDH 131 U/L (84-246); Potassium 3.9 mmol/L (3.5-5.1); Protein, Total 7.2 g/dL (6.4-8.2); Sodium Level 141 mmol/L (136-145); T3 Uptake 34 % (30-39); T4 Free Direct 0.85 ng/dL (0.76-1.46); T4 Total, Thyroxin 6.6 ug/dL (4.8-13.9); T7 / Free Thyroxin Index 2.2 (1.4-4.5)
[2022-11-27 08:12] LABS: Ceruloplasmin 31.4 mg/dL (19.0-39.0); Copper, Serum or Plasma 142 ug/dL (80-158)
== END | disposition home or self-care (01) ==
PROVIDERS: PCP Internal Medicine
DX: G47.9 Sleep disorder, unspecified (principal); E56.9 Vitamin deficiency, unspecified; E61.9 Deficiency of nutrient element, unspecified; R42 Dizziness and giddiness; L63.1 Alopecia universalis; E03.9 Hypothyroidism, unspecified; R79.1 Abnormal coagulation profile; R77.8 Other specified abnormalities of plasma proteins
CPT/HCPCS: 36415; 80053; 82390; 82525; 82728; 82977; 83615; 84436; 84439; 84443; 84479; 84481; 85025; 85384; 85652; 86141

== ENCOUNTER → 2023-03-22 | Outpatient (CLI) | payer MEDICARE, OTHER, SELFPAY ==
[2023-03-22 10:35] LABS: Absolute Neutrophil Count 2.8 X10^3/uL (2.0-7.7); Basophil# 0.02 X10^3/uL; Basophil% 0.4 % (0-1); Eosinophil# 0.15 X10^3/uL; Eosinophils% 3.2 % (0-5); Hematocrit 43.9 % (37-47); Hemoglobin 13.8 g/dL (12.0-15.0); Lymphocyte % 29.7 % (19-41); Mean Corp Hgb Conc 31.4 g/dL (32-36); Mean Corpuscular Hgb 27.4 pg (27.0-32.0); Mean Corpuscular Volume 87.1 fL (81-99); Mean Platelet Vol. 11.6 fl (6.2-12.0); Monocyte# 0.31 X10^3/uL; Monocyte% 6.6 % (0-10); NRBC Flagged by Analyzer 0 % (0-5); Neutrophil # 2.83 X10^3/uL (2.7-7.7); Neutrophil % 59.9 % (47-70); Platelet Count 265 K/mm3 (150-450); RBC Distribution Width CV 13.3 % (11.6-14.6); RBC Distribution Width SD 42.1 fl (35.1-43.9); Red Blood Count 5.04 M/mm3 (4.2-5.4); White Blood Count 4.7 K/mm3 (4.4-11.0)
[2023-03-22 10:36] LABS: Erythrocyte Sedimentation Rate 18 mm/hr (0-30)
[2023-03-22 10:44] LABS: Fibrinogen 420 mg/dl (203-444)
[2023-03-22 11:44] LABS: AST(SGOT) 27 U/L (15-37); Alanine Aminotransfer ALT/SGPT 29 U/L (13-56); Albumin, Serum 3.8 g/dL (3.2-5.0); Alkaline Phosphatase 66 U/L (45-117); Anion Gap 5 (5-15); BUN 11 mg/dL (7-18); BUN/Creat Ratio 17.1 RATIO (10-20); CRP, High Sensitivity Cardiac 0.56 mg/L; Calcium,Total 9.8 mg/dL (8.5-10.1); Chloride 107 mmol/L (98-107); Creatinine, Serum 0.64 mg/dL (0.55-1.02); EST Glomerular Filtration Rate 98 mL/min (>60); Est Glom Filt Rate - Afr Amer 118 mL/min (>60); Free T3 2.9 pg/mL (2.18-3.98); Globulin 3.7 g/dL (2.2-4.2); Glucose 84 mg/dL (74-106); LDH 152 U/L (84-246); Potassium 3.8 mmol/L (3.5-5.1); Protein, Total 7.5 g/dL (6.4-8.2); Sodium Level 140 mmol/L (136-145); T4 Free Direct 0.86 ng/dL (0.76-1.46)
[2023-03-29 15:07] LABS: Ceruloplasmin 30.5 mg/dL (19.0-39.0); Copper, Serum or Plasma 134 ug/dL (80-158)
== END | disposition home or self-care (01) ==
PROVIDERS: PCP Internal Medicine
DX: E56.9 Vitamin deficiency, unspecified (principal); E61.9 Deficiency of nutrient element, unspecified; R42 Dizziness and giddiness; L63.1 Alopecia universalis; E03.9 Hypothyroidism, unspecified; G47.9 Sleep disorder, unspecified; H93.19 Tinnitus, unspecified ear; R79.1 Abnormal coagulation profile
CPT/HCPCS: 36415; 80053; 82390; 82525; 83615; 84439; 84481; 85025; 85384; 85652; 86141

== ENCOUNTER → 2023-05-27 | Outpatient (CLI) | payer MEDICARE, OTHER, SELFPAY | END | disposition home or self-care (01) | PROVIDERS: PCP Internal Medicine; Referring Provider Internal Medicine; Visit Provider Internal Medicine | DX: K58.9 Irritable bowel syndrome, unspecified (principal); R19.7 Diarrhea, unspecified | CPT/HCPCS: 87493 ==

== ENCOUNTER → 2023-06-14 | Outpatient (CLI) | payer MEDICARE, OTHER, SELFPAY ==
[2023-06-14 10:50] LABS: Absolute Lymphocyte Count 1.58 X10^3/uL (0.83-4.51); Absolute Neutrophil Count 3.6 X10^3/uL (2.0-7.7); Basophil# 0.04 X10^3/uL; Basophil% 0.7 % (0-1); Eosinophil# 0.19 X10^3/uL; Eosinophils% 3.3 % (0-5); Hematocrit 43.2 % (37-47); Hemoglobin 13.3 g/dL (12.0-15.0); Lymphocyte # 1.58 X10^3/ul (0.83-4.51); Lymphocyte % 27.6 % (19-41); Mean Corp Hgb Conc 30.8 g/dL (32-36); Mean Corpuscular Hgb 26.7 pg (27.0-32.0); Mean Corpuscular Volume 86.6 fL (81-99); Mean Platelet Vol. 11.6 fl (6.2-12.0); Monocyte# 0.32 X10^3/uL; Monocyte% 5.6 % (0-10); NRBC Flagged by Analyzer 0 % (0-5); Neutrophil # 3.58 X10^3/uL (2.7-7.7); Neutrophil % 62.5 % (47-70); Platelet Count 290 K/mm3 (150-450); RBC Distribution Width CV 13.5 % (11.6-14.6); RBC Distribution Width SD 43.1 fl (35.1-43.9); Red Blood Count 4.99 M/mm3 (4.2-5.4); White Blood Count 5.7 K/mm3 (4.4-11.0)
[2023-06-14 11:06] LABS: Vitamin D,25 Hydroxy 71.6 ng/mL
[2023-06-14 11:09] LABS: Fibrinogen 397 mg/dl (203-444)
[2023-06-14 11:12] LABS: Erythrocyte Sedimentation Rate 10 mm/hr (0-30)
[2023-06-14 11:16] LABS: Homocysteine 6.5 umol/L (3.2-10.7)
[2023-06-14 11:25] LABS: ALB/GLOB Ratio 0.9 RATIO (0.9-2.4); AST(SGOT) 27 U/L (15-37); Alanine Aminotransfer ALT/SGPT 25 U/L (13-56); Albumin, Serum 3.7 g/dL (3.2-5.0); Alkaline Phosphatase 68 U/L (45-117); Anion Gap 5 (5-15); BUN 11 mg/dL (7-18); CRP, High Sensitivity Cardiac 2.45 mg/L; Calcium,Total 9.3 mg/dL (8.5-10.1); Chloride 108 mmol/L (98-107); Creatinine, Serum 0.61 mg/dL (0.55-1.02); EST Glomerular Filtration Rate 104 mL/min (>60); Est Glom Filt Rate - Afr Amer 125 mL/min (>60); Ferritin 19 ng/mL (8-252); Free T3 2.4 pg/mL (2.18-3.98); Globulin 3.9 g/dL (2.2-4.2); Glucose 87 mg/dL (74-106); LDH 194 U/L (84-246); Potassium 3.8 mmol/L (3.5-5.1); Protein, Total 7.6 g/dL (6.4-8.2); Sodium Level 141 mmol/L (136-145); T4 Free Direct 0.82 ng/dL (0.76-1.46); T4 Total, Thyroxin 5.7 ug/dL (4.8-13.9); Thyroid Stim Hormone (TSH) 4.83 uIU/mL (0.358-3.74); Uric Acid 2.9 mg/dL (2.6-6.0)
[2023-06-14 14:11] LABS: Hemoglobin A1c 4.9 % (3.8-5.6)
[2023-06-24 01:07] LABS: Ceruloplasmin 34.6 mg/dL (19.0-39.0); Copper, Serum or Plasma 141 ug/dL (80-158); Insulin Like Growth Factor 91 ng/mL (52-196)
== END | disposition home or self-care (01) ==
LOC: MTLAB 07:04
PROVIDERS: PCP Internal Medicine
DX: E56.9 Vitamin deficiency, unspecified (principal); L63.1 Alopecia universalis; E03.9 Hypothyroidism, unspecified; H93.19 Tinnitus, unspecified ear; R79.0 Abnormal level of blood mineral; M81.0 Age-related osteoporosis without current pathological fracture
CPT/HCPCS: 36415; 80053; 82306; 82390; 82525; 82728; 83036; 83090; 83615; 84305; 84436; 84439; 84443; 84481; 84550; 85025; 85384; 85652; 86141

== ENCOUNTER → 2023-09-20 | Outpatient (CLI) | payer MEDICARE, OTHER, SELFPAY ==
[2023-09-24 10:09] LABS: HPV APTIMA, High Risk Negative (Negative)
== END | disposition home or self-care (01) ==
LOC: LABSPEC 11:44
PROVIDERS: PCP Internal Medicine; Referring Provider Obstetrics & Gynecology; Visit Provider Obstetrics & Gynecology
DX: Z12.4 Encounter for screening for malignant neoplasm of cervix (principal)
CPT/HCPCS: 87624; 88175; G0145

== ENCOUNTER → 2023-10-18 | Outpatient (CLI) | payer MEDICARE, OTHER, SELFPAY ==
[2023-10-18 10:10] LABS: Absolute Lymphocyte Count 1.62 X10^3/uL (0.83-4.51); Absolute Neutrophil Count 3.7 X10^3/uL (2.0-7.7); Basophil# 0.03 X10^3/uL; Basophil% 0.5 % (0-1); Eosinophil# 0.16 X10^3/uL; Eosinophils% 2.7 % (0-5); Hematocrit 39.7 % (37-47); Hemoglobin 12.9 g/dL (12.0-15.0); Lymphocyte # 1.62 X10^3/ul (0.83-4.51); Lymphocyte % 27.8 % (19-41); Mean Corp Hgb Conc 32.5 g/dL (32-36); Mean Corpuscular Hgb 28.4 pg (27.0-32.0); Mean Corpuscular Volume 87.3 fL (81-99); Mean Platelet Vol. 11.6 fl (6.2-12.0); Monocyte# 0.29 X10^3/uL; NRBC Flagged by Analyzer 0 % (0-5); Neutrophil # 3.71 X10^3/uL (2.7-7.7); Neutrophil % 63.8 % (47-70); Platelet Count 302 K/mm3 (150-450); RBC Distribution Width CV 13.5 % (11.6-14.6); RBC Distribution Width SD 42.9 fl (35.1-43.9); Red Blood Count 4.55 M/mm3 (4.2-5.4); White Blood Count 5.8 K/mm3 (4.4-11.0)
[2023-10-18 10:11] LABS: Erythrocyte Sedimentation Rate 13 mm/hr (0-30)
[2023-10-18 10:41] LABS: Fibrinogen < 60 mg/dl (203-444)
[2023-10-18 10:48] LABS: AST(SGOT) 29 U/L (15-37); Alanine Aminotransfer ALT/SGPT 30 U/L (13-56); Albumin, Serum 3.9 g/dL (3.2-5.0); Alkaline Phosphatase 65 U/L (45-117); Anion Gap 5 (5-15); BUN 10 mg/dL (7-18); BUN/Creat Ratio 14.5 RATIO (10-20); CRP, High Sensitivity Cardiac 0.42 mg/L; Calcium,Total 9.5 mg/dL (8.5-10.1); Chloride 106 mmol/L (98-107); Creatinine, Serum 0.69 mg/dL (0.55-1.02); EST Glomerular Filtration Rate 90 mL/min (>60); Est Glom Filt Rate - Afr Amer 109 mL/min (>60); Ferritin 21 ng/mL (8-252); Free T3 2.7 pg/mL (2.18-3.98); GGTP 10 U/L (5-55); Globulin 3.8 g/dL (2.2-4.2); Glucose 84 mg/dL (74-106); LDH 177 U/L (84-246); Potassium 3.6 mmol/L (3.5-5.1); Protein, Total 7.7 g/dL (6.4-8.2); Sodium Level 140 mmol/L (136-145); T3 Uptake 37 % (30-39); T4 Free Direct 0.87 ng/dL (0.76-1.46); T4 Total, Thyroxin 7.8 ug/dL (4.8-13.9); T7 / Free Thyroxin Index 2.9 (1.4-4.5); Thyroid Stim Hormone (TSH) 4.84 uIU/mL (0.358-3.74); Uric Acid 3.5 mg/dL (2.6-6.0)
[2023-10-20 16:10] LABS: Copper, Serum or Plasma 144 ug/dL (80-158); Insulin Like Growth Factor 80 ng/mL (52-196)
== END | disposition home or self-care (01) ==
LOC: MTLAB 07:04
PROVIDERS: PCP Internal Medicine; Referring Provider Naturopath; Visit Provider Naturopath
DX: L63.1 Alopecia universalis (principal); E56.9 Vitamin deficiency, unspecified; E03.9 Hypothyroidism, unspecified; H93.19 Tinnitus, unspecified ear; R79.82 Elevated C-reactive protein (CRP); R79.0 Abnormal level of blood mineral
CPT/HCPCS: 36415; 80053; 82525; 82728; 82977; 83036; 83615; 84305; 84436; 84439; 84443; 84479; 84481; 84550; 85025; 85384; 85652; 86141

== ENCOUNTER → 2023-10-25 | Outpatient (CLI) | payer MEDICARE, OTHER, SELFPAY ==
--- NOTE | 2023-10-25 09:07 | BI_ITS ---
MAMMOGRAPHY - BILATERAL SCREENING REASON FOR EXAM: Female, 68 years old. Routine annual screening examination. PERTINENT HISTORY: Grandmother with breast cancer. TECHNIQUE: Digital bilateral breast tera (3D mammographic acquisition) in the CC and MLO projections. 2-D mediolateral oblique (MLO) and craniocaudad (CC) views of both breasts were obtained. CAD: Full Field Digital Mammography with Computer Added Detection was performed. COMPARISON: Comparison is made with prior study dated October 21, 2022 and September 01, 2021. FINDINGS: Breast Composition: The breasts are heterogeneously dense, which may obscure small masses. There are no dominant masses or suspicious calcifications. No other significant abnormalities are identified. There has been no significant change since the prior study. BI/SCRN MAMM (CAD)W/TERA BILAT IMPRESSION: Stable bilateral screening mammogram. Yearly follow-up mammogram recommended. (A) ASSESSMENT CATEGORY: BIRADS Category 1: Negative. A letter regarding these results will be sent to the patient by the facility within 30 days. Approximately 10% of breast cancers are not detected by mammography. A normal mammogram should not delay biopsy of a clinically suspicious abnormality. [id number] Electronically Signed: Andrew Capps MD at 10:30 EDT ,
== END | disposition home or self-care (01) ==
LOC: OPBI 09:07
PROVIDERS: PCP Internal Medicine; Referring Provider Obstetrics & Gynecology; Visit Provider Obstetrics & Gynecology
DX: Z12.31 Encounter for screening mammogram for malignant neoplasm of breast (principal); Z80.3 Family history of malignant neoplasm of breast
CPT/HCPCS: 77063; 77067

== ENCOUNTER → 2023-11-05 | Outpatient (CLI) | payer MEDICARE, OTHER, SELFPAY ==
[2023-11-05 11:07] LABS: ALB/GLOB Ratio 1.1 RATIO (0.9-2.4); AST(SGOT) 21 U/L (15-37); Alanine Aminotransfer ALT/SGPT 24 U/L (13-56); Albumin, Serum 3.6 g/dL (3.2-5.0); Alkaline Phosphatase 62 U/L (45-117); Anion Gap 5 (5-15); BUN 12 mg/dL (7-18); Calcium,Total 9.5 mg/dL (8.5-10.1); Chloride 107 mmol/L (98-107); EST Glomerular Filtration Rate 106 mL/min (>60); Est Glom Filt Rate - Afr Amer 128 mL/min (>60); Globulin 3.4 g/dL (2.2-4.2); Glucose 81 mg/dL (74-106); Potassium 3.8 mmol/L (3.5-5.1); Sodium Level 141 mmol/L (136-145)
== END | disposition home or self-care (01) ==
LOC: MTLAB 07:01
PROVIDERS: PCP Internal Medicine; Referring Provider Naturopath; Visit Provider Naturopath
DX: L63.1 Alopecia universalis (principal); E61.9 Deficiency of nutrient element, unspecified; E56.9 Vitamin deficiency, unspecified; E03.9 Hypothyroidism, unspecified; H93.19 Tinnitus, unspecified ear; R79.1 Abnormal coagulation profile; R79.82 Elevated C-reactive protein (CRP)
CPT/HCPCS: 36415; 80053

== ENCOUNTER → 2023-11-11 | Outpatient (CLI) | payer MEDICARE, OTHER, SELFPAY ==
[2023-11-11 10:04] LABS: Absolute Neutrophil Count 2.8 X10^3/uL (2.0-7.7); Basophil# 0.03 X10^3/uL; Basophil% 0.6 % (0-1); Eosinophil# 0.14 X10^3/uL; Eosinophils% 2.8 % (0-5); Hematocrit 39.5 % (37-47); Hemoglobin 12.7 g/dL (12.0-15.0); Lymphocyte % 30.5 % (19-41); Mean Corp Hgb Conc 32.2 g/dL (32-36); Mean Corpuscular Hgb 28.3 pg (27.0-32.0); Mean Platelet Vol. 11.4 fl (6.2-12.0); Monocyte# 0.39 X10^3/uL; Monocyte% 7.9 % (0-10); NRBC Flagged by Analyzer 0 % (0-5); Neutrophil # 2.84 X10^3/uL (2.7-7.7); Neutrophil % 57.8 % (47-70); Platelet Count 265 K/mm3 (150-450); RBC Distribution Width SD 41.6 fl (35.1-43.9); Red Blood Count 4.49 M/mm3 (4.2-5.4); White Blood Count 4.9 K/mm3 (4.4-11.0)
[2023-11-11 10:24] LABS: Fibrinogen 427 mg/dl (203-444)
== END | disposition home or self-care (01) ==
LOC: MTLAB 09:15
PROVIDERS: PCP Internal Medicine; Referring Provider Naturopath; Visit Provider Naturopath
DX: L63.1 Alopecia universalis (principal); E61.9 Deficiency of nutrient element, unspecified; E56.9 Vitamin deficiency, unspecified; E03.9 Hypothyroidism, unspecified; H93.19 Tinnitus, unspecified ear; R79.1 Abnormal coagulation profile; R79.82 Elevated C-reactive protein (CRP)
CPT/HCPCS: 85025; 85384

== ENCOUNTER 2024-04-27 07:00 | Outpatient (CLI) | payer MEDICARE, OTHER, SELFPAY ==
[2024-04-27 10:35] LABS: Erythrocyte Sedimentation Rate 9 mm/hr (0-30)
[2024-04-27 10:38] LABS: Absolute Lymphocyte Count 1.81 X10^3/uL (0.83-4.51); Basophil# 0.03 X10^3/uL; Basophil% 0.6 % (0-1); Eosinophils% 3.7 % (0-5); Hematocrit 40.3 % (37-47); Hemoglobin 13.3 g/dL (12.0-15.0); Lymphocyte # 1.81 X10^3/ul (0.83-4.51); Lymphocyte % 33.4 % (19-41); Mean Corpuscular Hgb 28.7 pg (27.0-32.0); Mean Corpuscular Volume 86.9 fL (81-99); Mean Platelet Vol. 11.5 fl (6.2-12.0); Monocyte# 0.36 X10^3/uL; Monocyte% 6.6 % (0-10); NRBC Flagged by Analyzer 0 % (0-5); Neutrophil # 3.01 X10^3/uL (2.7-7.7); Neutrophil % 55.5 % (47-70); Platelet Count 254 K/mm3 (150-450); RBC Distribution Width CV 13.2 % (11.6-14.6); RBC Distribution Width SD 41.6 fl (35.1-43.9); Red Blood Count 4.64 M/mm3 (4.2-5.4); White Blood Count 5.4 K/mm3 (4.4-11.0)
[2024-04-27 10:39] LABS: Hemoglobin A1c 5.2 % (3.8-5.6)
[2024-04-27 10:47] LABS: Fibrinogen 409 mg/dl (203-444); T3 Total - Triiodothyronine 1.03 ng/mL (0.6-1.81); Vitamin D,25 Hydroxy 56.3 ng/mL
[2024-04-27 11:03] LABS: ALB/GLOB Ratio 1.1 RATIO (0.9-2.4); AST(SGOT) 19 U/L (15-37); Alanine Aminotransfer ALT/SGPT 24 U/L (13-56); Albumin, Serum 3.8 g/dL (3.2-5.0); Alkaline Phosphatase 60 U/L (45-117); Anion Gap 5 (5-15); BUN 13 mg/dL (7-18); Calcium,Total 9.7 mg/dL (8.5-10.1); Chloride 109 mmol/L (98-107); Cholesterol 247 mg/dL (200); Creatinine, Serum 0.65 mg/dL (0.55-1.02); EST Glomerular Filtration Rate 96 mL/min (>60); Est Glom Filt Rate - Afr Amer 116 mL/min (>60); Ferritin 31 ng/mL (8-252); Free T3 2.7 pg/mL (2.18-3.98); Globulin 3.6 g/dL (2.2-4.2); Glucose 89 mg/dL (74-106); High Density Lipoprotein 125 mg/dL; LDH 146 U/L (84-246); Potassium 3.6 mmol/L (3.5-5.1); Protein, Total 7.4 g/dL (6.4-8.2); Sodium Level 140 mmol/L (136-145); T4 Free Direct 0.86 ng/dL (0.76-1.46); T4 Total, Thyroxin 6.9 ug/dL (4.8-13.9); Triglycerides 67 mg/dL; Uric Acid 3.7 mg/dL (2.6-6.0); Very Low Density Lipoprotein 13 mg/dL (5-40)
[2024-04-28 12:10] LABS: CRP, High Sensitivity 0.29 mg/L (0.00-3.00); HOMOCYSTEINE 6.7 umol/L (0.0-17.2)
[2024-05-02 00:07] LABS: Copper, Serum or Plasma 114 ug/dL (80-158); GGTP 8 IU/L (0-60); Insulin Level 8.2 uIU/mL (2.6-24.9); Insulin Like Growth Factor 93 ng/mL (52-196); T3 Reverse 12.3 ng/dL (9.2-24.1); T3UP 30 % (24-39); Thyroglobulin Antibody < 1.0 IU/mL (0.0-0.9); Thyroid Peroxidase AB 15 IU/mL (0-34)
== END 2024-04-27 23:59 | disposition home or self-care (01) ==
PROVIDERS: PCP Internal Medicine; Referring Provider Naturopath; Visit Provider Naturopath
DX: F41.9 Anxiety disorder, unspecified (principal); G47.9 Sleep disorder, unspecified; E56.9 Vitamin deficiency, unspecified; E61.9 Deficiency of nutrient element, unspecified; R79.1 Abnormal coagulation profile; E03.9 Hypothyroidism, unspecified; H93.19 Tinnitus, unspecified ear; R77.8 Other specified abnormalities of plasma proteins; R51.9 Headache, unspecified; K59.00 Constipation, unspecified; R59.9 Enlarged lymph nodes, unspecified; R42 Dizziness and giddiness; L63.1 Alopecia universalis; R19.5 Other fecal abnormalities; E83.51 Hypocalcemia; E78.00 Pure hypercholesterolemia, unspecified; R79.0 Abnormal level of blood mineral
CPT/HCPCS: 36415; 80053; 80061; 82306; 82525; 82728; 82977; 83036; 83090; 83525; 83615; 84305; 84436; 84439; 84443; 84479; 84480; 84481; 84482; 84550; 85025; 85384; 85652; 86141; 86376; 86800

== ENCOUNTER 2024-07-04 08:38 | Day surgery (SDC) | payer MEDICARE, OTHER, SELFPAY ==
[2024-07-04] VITALS (7 sets, daily range): BP systolic 108–131; BP diastolic 46–78; PULSE 80–92; RESP 16; TEMP 36.2–36.6; O2SAT 96–98; BMI 22.1
--- NOTE | 2024-07-04 | COLBX_PTH ---
PATIENT: ANA LAURA DANIELS LOC: EN U#:[id number] AGE/SX: 68/F ROOM: RE07/04/[address]: Dr. Carlos Enrique Pierce MD : 1955 BED: DIS: 07/04/2024 SPEC #: [id number] RECD: 07/04/24 12:43 STATUS: CHARAN EWELINA #: [id number] HANANE: 07/04/24 00:[address]: Carlos Enrique Pierce DEPT: SURGICAL PATHOLOGY RECD BY: Elroy Roe ENTERED: 07/04/24 12:43 SP TYPE: COLON BX OTHR DR: Tarah Taveras MD Tissues: Descending colon Procedures: Surgery Specimen Level IV HEADER OPERATION: Colonoscopy, biopsy, hemostasis PRE-OP DIAGNOSIS: Encounter for screening for malignant neoplasm of colon TISSUE SUBMITTED: Descending polyp biopsy MICROSCOPIC DIAGNOSIS Descending colon polyp, biopsy: Tubular adenomaMing Bennett 07/05/2024 MICROSCOPIC DESCRIPTION Slides are reviewed. GROSS DESCRIPTION Received in fixative is one container labeled with the patient's name and designated Descending polyp biopsy. The specimen consists of multiple irregular fragments of light reza soft tissue that in aggregate measure 1.5 x 0.3 x 0.1 cm. The specimen is totally submitted in one cassette. SHANNONMing 07/04/2024 TC:0 CPT:44461
--- NOTE | 2024-07-04 09:44 | PRE.ANES_ITS ---
ASA Classification* ASA Classification ASA Classification: 2 Assessment & Plan Anesthesia* Anesthesia Assessment Anesthesia Assessment: Discussed sedation and/or anesthesia options, risks, benefits, and alternatives with patient/parents/legal guardian/POA. Questions invited. The patient/parents/legal guardian/POA seems to understand and agrees to proceed with anesthesia plan. Reviewed the physical assessment, medical history, allergy history and patient home medications list prior to surgery/procedure/anesthetic and documented any changes. Performed airway and anesthesia risk assessments. Anesthesia Type Anesthesia Type: MAC History Source History Obtained from:: Patient and Chart Anesthesia Focused Assessment* Temperature: 97.3 F Pulse Rate: 89 Blood Pressure: 131/78 Respiratory Rate: 16 Pulse Ox: 98 Oxygen Delivery Method: Room Air Airway Assessment Mouth opens: >3 cm Mallampati Score: II Teeth Condition: Caps/Crowns (Patient has several crowns. Patient has a couple of bridges on the lower jaw as well. They are all tight.) Neck Range of motion (ROM): Full ROM Focused Labs Anesthesia Preop lab: CBC WBC 5.4 K/mm3 (4.4-11.0) 04/27/24 07:02 RBC 4.64 M/mm3 (4.2-5.4) 04/27/24 07:02 Hgb 13.3 g/dL (12.0-15.0) 04/27/24 07:02 Hct 40.3 % (37-47) 04/27/24 07:02 Plt Count 254 K/mm3 (150-450) 04/27/24 07:02 CHEMISTRY Potassium 3.6 mmol/L (3.5-5.1) 04/27/24 07:02 Sodium 140 mmol/L (136-145) 04/27/24 07:02 BUN 13 mg/dL (7-18) 04/27/24 07:02 Creatinine 0.65 mg/dL (0.55-1.02) 04/27/24 07:02 Glucose 89 mg/dL (74-106) 04/27/24 07:02 TSH 5.400 uIU/mL (0.358-3.740) H 04/27/24 07:02 COAG Pre-Assessment Diagnosis/Proposed Procedure Planned Operative Procedure(s): CSCOPE OA Anesthesia History 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 When Was Last Pacemaker Check QUESTION #4 FULL TEXT: You/Your Family Experience fever (hyperthermia) with Anesthesia Last Oral Intake Last Oral intake: Last Oral Intake NPO since 00:00 07/04/24 09:00 Meds taken in AM with sips of water? Meds patient instructed to take am of surgery PONV PONV - electric milkers installer: PONV - electric milkers installer Female Yes 06/30/24 14:47 HX of Motion Sickness Yes 06/30/24 14:47 HX of N/V After Surgery No 06/30/24 14:47 Non-Smoker Yes 06/30/24 14:47 Duration of Surgery greater No 06/30/24 14:47 than 60 minutes Number of Risk Factors 3 06/30/24 14:47 PONV Score Moderate Risk 06/30/24 14:47 Height & Weight Height & Weight: Anesthesia: Height & Weight Height 5 ft 1 in 07/04/24 09:00 Weight: 53.07 kg 07/04/24 09:00 Body Mass Index (BMI) 22.1 07/04/24 09:00 Respiratory Assessment Respiratory Assessment - electric milkers installer: Respiratory Tract Infection Hx - electric milkers installer Hx Respiratory Tract Infection No 06/30/24 14:47 STOP Sleep Apnea STOP Sleep Apnea - electric milkers installer: STOP Sleep Apnea - electric milkers installer Hx Hypertension No 06/30/24 14:47 Hx Sleep Apnea No 06/30/24 14:47 CPAP No 02/23/24 09:33 BIPAP Do you snore loudly (louder No 06/30/24 14:47 than talking or can be heard Do you often feel tired/ Yes 06/30/24 14:47 fatigued/ sleepy during daytime? Has anyone observed you stop No 06/30/24 14:47 breathing during sleep? STOP Results Negative 06/30/24 14:47 QUESTION #5 FULL TEXT : Do you snore loudly (louder than talking or can be heard through closed doors)? Tobacco Use History Tobacco Use History - electric milkers installer: Tobacco Use History - electric milkers installer Tobacco Use Smoking Status Never smoker 06/30/24 14:47 Hx Tobacco Use No 06/30/24 14:47 Years Smoking Packs Smoked per Day Smoking Cessation Date was within the last 15 years Hx Smoking Cessation Date Hx Smoking Cessation Counseling Hematologic Medial History Hematologic Hx - electric milkers installer: Hematologic Medical Hx - editor magazine Hx of Blood Transfusion No 06/30/24 14:47 Hx of Transfusion in last 3 No 06/30/24 14:47 Months Date of Last Transfusion (if within last 3 months) Ever experience any problems No 06/30/24 14:47 with transfusion(s)? Specify any problems Hx of Preganancy in last 3 No 06/30/24 14:47 Months Nurse Filling Out Transfusion DSCHRIBER 06/30/24 14:47 & Questions: Date: 06/30/24 06/30/24 14:47 Time: 14:48 06/30/24 14:47 Patient unable to answer at this time (ie. confused, unrespo /Reproduction History /Reproductive History - electric milkers installer: /Reproductive Hx- electric milkers installer Hx Now No 06/30/24 14:47 Gestational Age (in weeks): EDC: Hx Hx Para Hx Section SAB No 06/30/24 14:47 PFSH Medical History Wears glasses Post-menopausal Alcohol use Arthritis Injury of head and neck Syncope Non-smoker Leg cramps History of echocardiogram Heart murmur Allergic dermatitis Open wound of right heel Osteoporosis Right wrist fracture Alopecia Home Medications ?Medication ?Instructions ?Recorded ?Last Taken ?Type ascorbate calcium (vitamin C) 500 500 mg PO DAILY 09/10/21 Unknown History mg tablet magnesium oxide 500 mg capsule 500 mg PO DAILY 09/10/21 Unknown History vitamin K2 45 mcg capsule 45 mcg PO DAILY 09/10/21 Unknown History B-complex with vitamin C 1 cap PO DAILY 12/07/22 Unknown History cholecalciferol (vitamin D3) 125 125 mcg PO DAILY 12/07/22 Unknown History mcg (5,000 unit) capsule zinc 50 mg PO DAILY 12/07/22 Unknown History selenium 50 mcg tablet 50 mcg PO QDAY 05/22/24 Unknown History ASHWA-70 1 cap PO QHS 06/30/24 Unknown History L-THYROSINE 2 cap PO DAILY 06/30/24 Unknown History THER-CIOTO=COMPLETE 1 cap PO DAILY 06/30/24 Unknown History Vascuzyme 2 cap PO DAILY 06/30/24 Unknown History thyroid 30 mg tablet 32.5 mg PO QHS 06/30/24 Unknown History Allergy/AdvReac Type Severity Reaction Status Date / Time grass pollen Allergy PT UNABLE Verified 07/04/24 08:59 TO RESPOND-NEEDS F/U Family History Mother Cancer lung-smoker Father Myocardial infarction Heart disease Daughter CVA (cerebral vascular accident) Surgical History Hx of tonsillectomy Hx of colonoscopy Social History household members: spouse current occupational status: employed Smoking Status: Never smoker alcohol intake: current details: social substance use type: does not use caffeine: Yes what type of physical activity do you participate in: walking frequency: 5-6 times per week seatbelt use: always do you feel safe at home: Yes additional social history: [employer]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 Review of Systems (Anesthesia) ROS Narrative System reviewed and no additional complaints, except as documented.
--- NOTE | 2024-07-04 10:05 | PCM.HP.STD ---
[facility] - General General Date of Admission: 07/04/24 Date of Service: 07/04/24 Chief Complaint: Screening colonoscopy HPI Narrative ANA LAURA DANIELS, is a 68 F who presents for screening colonoscopy. Her last colonoscopy was about 7 years ago. No previous issues with polyps. No family history of colon polyps or colon cancers. No GI symptoms currently [facility] Medical History Wears glasses Post-menopausal Alcohol use Arthritis Injury of head and neck Syncope Non-smoker Leg cramps History of echocardiogram Heart murmur Allergic dermatitis Open wound of right heel Osteoporosis Right wrist fracture Alopecia Home Medications ?Medication ?Instructions ?Recorded ?Last Taken ?Type ascorbate calcium (vitamin C) 500 500 mg PO DAILY 09/10/21 Unknown History mg tablet magnesium oxide 500 mg capsule 500 mg PO DAILY 09/10/21 Unknown History vitamin K2 45 mcg capsule 45 mcg PO DAILY 09/10/21 Unknown History B-complex with vitamin C 1 cap PO DAILY 12/07/22 Unknown History cholecalciferol (vitamin D3) 125 125 mcg PO DAILY 12/07/22 Unknown History mcg (5,000 unit) capsule zinc 50 mg PO DAILY 12/07/22 Unknown History selenium 50 mcg tablet 50 mcg PO QDAY 05/22/24 Unknown History ASHWA-70 1 cap PO QHS 06/30/24 Unknown History L-THYROSINE 2 cap PO DAILY 06/30/24 Unknown History THER-CIOTO=COMPLETE 1 cap PO DAILY 06/30/24 Unknown History Vascuzyme 2 cap PO DAILY 06/30/24 Unknown History thyroid 30 mg tablet 32.5 mg PO QHS 06/30/24 Unknown History Allergy/AdvReac Type Severity Reaction Status Date / Time grass pollen Allergy PT UNABLE Verified 07/04/24 08:59 TO RESPOND-NEEDS F/U Family History Mother Cancer lung-smoker Father Myocardial infarction Heart disease Daughter CVA (cerebral vascular accident) Surgical History Hx of tonsillectomy Hx of colonoscopy Social History household members: spouse current occupational status: employed Smoking Status: Never smoker alcohol intake: current details: social substance use type: does not use caffeine: Yes what type of physical activity do you participate in: walking frequency: 5-6 times per week seatbelt use: always do you feel safe at home: Yes additional social history: [employer]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 Vital Signs Vital Signs Vital Signs: 07/04/24 09:00 07/04/24 09:51 Temperature 97.3 F L 97.3 F L Temperature Source Temporal Pulse Rate 89 89 Respiratory Rate 16 16 Blood Pressure 131/78 H 131/78 H Blood Pressure Mean 95 Blood Pressure Source Monitor Blood Pressure Position Sitting Blood Pressure Location Right Arm Pulse Ox 98 98 Oxygen Delivery Method Room Air Room Air Weight Weight: 117 lb Body Mass Index (BMI) 22.1 Physical Exam Const alert, oriented x3 and no apparent distress Assessment & Plan Assessment/Plan (1) Encounter for screening for malignant neoplasm of colon: PLAN: Plan The patient is a 68-year-old female in need of a screening colonoscopy. We discussed the details of the planned procedure including the risks benefits and alternatives. She wishes to proceed. Procedure will begin momentarily. Charges/Coding Visit Charges Inpatient E&M: 36896 Init Hosp L1
--- NOTE | 2024-07-04 10:47 | OP.COLON_ITS ---
Patient Name: Tori Vasquez Procedure Date: 07/04/2024 10:02 AM Date of : 1955 Age: 68 Procedure: Colonoscopy Indications: Screening for colorectal malignant neoplasm Providers: Carlos Enrique Pierce MD Referring MD: Carlos Enrique Pierce MD Medicines: Monitored Anesthesia Care Patient Profile: Refer to note in patient chart for documentation of history and physical. Last Colonoscopy: several years ago. Complications: No immediate complications. Estimated blood loss: Minimal. Procedure: Pre-Anesthesia Assessment: - Prior to the procedure, a History and Physical was performed, and patient medications and allergies were reviewed. The patient's tolerance of previous anesthesia was also reviewed. The risks and benefits of the procedure and the sedation options and risks were discussed with the patient. All questions were answered, and informed consent was obtained. Prior Anticoagulants: The patient has taken no anticoagulant or antiplatelet agents. ASA Grade Assessment: II - A patient with mild systemic disease. After reviewing the risks and benefits, the patient was deemed in satisfactory condition to undergo the procedure. After I obtained informed consent, the scope was passed under direct vision. Throughout the procedure, the patient's blood pressure, pulse, and oxygen saturations were monitored continuously. The colonoscope was introduced through the anus and advanced to the cecum, identified by the appendiceal orifice, ileocecal valve and palpation. The ileocecal valve, appendiceal orifice, and rectum were photographed. The entire colon was well visualized. The patient tolerated the procedure well. The quality of the bowel preparation was adequate. Moderate Sedation: See the other procedure note for documentation of moderate sedation with intraservice time. Scope In: 10:14:13 AM Scope Withdrawal Time 0 hours 10 minutes 47 seconds Scope Out: 10:40:04 AM Total Procedure Duration Time 0 hours 25 minutes 51 seconds Findings: The perianal and digital rectal examinations were normal. External and internal hemorrhoids were found during endoscopy. The hemorrhoids were moderate. A 4 mm polyp was found in the descending colon. The polyp was semi-sessile. The polyp was removed with a cold biopsy forceps. Resection and retrieval were complete. Verification of patient identification for the specimen was done by the nurse using the patient's name, date and medical record number. To prevent bleeding after the polypectomy, one hemostatic clip was successfully placed. Bleeding had stopped at the end of the procedure. The exam was otherwise without abnormality on direct and retroflexion views. Impression: - External and internal hemorrhoids. - One 4 mm polyp in the descending colon, removed with a cold biopsy forceps. Resected and retrieved. Clip was placed. - The examination was otherwise normal on direct and retroflexion views. Recommendation: - Discharge patient to home (ambulatory). - High fiber diet indefinitely. - Await pathology results. - Repeat colonoscopy in 5 years for surveillance. - Return to my office PRN. - Continue present medications. Procedure Code(s): --- Professional --- 87248, Colonoscopy, flexible; with biopsy, single or multiple Diagnosis Code(s): --- Professional --- Z12.11, Encounter for screening for malignant neoplasm of colon D12.4, Benign neoplasm of descending colon K64.8, Other hemorrhoids CPT copyright 2021 [employer]. All rights reserved. The codes documented in this report are preliminary and upon county home demonstration agent review may be revised to meet current compliance requirements. Carlos Enrique Pierce MD 07/04/2024 10:46:55 AM This report has been signed electronically. Number of Addenda: 0 Note Initiated On: 07/04/2024 10:02 AM
--- NOTE | 2024-07-04 10:47 | OP.CCLET_ITS ---
07/04/2024 Tarah Taveras Md Re : Colonoscopy procedure for Tori Vasquez Dear Darcy This procedure was performed on Thursday, July 04, 2024. My impressions and recommendations are as follows: Impressions : - External and internal hemorrhoids. - One 4 mm polyp in the descending colon, removed with a cold biopsy forceps. Resected and retrieved. Clip was placed. - The examination was otherwise normal on direct and retroflexion views. Recommendations : - Discharge patient to home (ambulatory). - High fiber diet indefinitely. - Await pathology results. - Repeat colonoscopy in 5 years for surveillance. - Return to my office PRN. - Continue present medications. My findings are described in the full procedure note, which is enclosed. If I can be of further assistance, please feel free to contact me at . Sincerely, Carlos Enrique Pierce MD 07/04/2024 10:46:55 AM This report has been signed electronically.
--- NOTE | 2024-07-04 10:51 | PCM.POST.ANE ---
Anesthesia: Postop Eval I Current Vital Signs Temperature: 97.8 F Pulse Rate: 92 Blood Pressure: 119/46 Respiratory Rate: 16 Pulse Ox: 98 Oxygen Delivery Method: Room Air Assessment Airway patent: Yes Spontaneous unlabored respirations: Yes Mental status: Awake and Calm nausea: No Vomiting: No Anesthesia Complication: No Fluid Hydration Crystalloid volume administer (ml): 40 Total IV fluid infused: 40 Progress Note Anesthesia document: Postop Eval 1 completed: Yes
--- NOTE | 2024-07-04 13:08 | PCM.POSTANE2 ---
Anesthesia Postop Eval I Sum Postop Eval Completion status Anesthesia document: Postop Eval 1 completed: Yes Anesthesia Postop Eval I Summary Anesthesia Postop Eval I Summary: Anesthesia Postop Eval I: Assessment Summary Airway patent Yes 07/04/24 10:52 [email or web address] Spontaneous unlabored Yes 07/04/24 10:52 [email or web address] respirations Mental status Awake,Calm 07/04/24 10:52 [email or web address] nausea No 07/04/24 10:52 [email or web address] Vomiting No 07/04/24 10:52 [email or web address] Anesthesia Postop Eval I: Fluid Summary Crystalloid volume administer 40 07/04/24 10:52 [email or web address] (ml) Colloids volume administered ( ml) Blood Product volume administered (ml) Total IV fluid infused 40 07/04/24 10:52 [email or web address] Anesthesia Postop Eval I: Summary Notes Anesthesia Complication No 07/04/24 10:52 [email or web address] Anesthesia Complication Comment: Post-operative progress note Anesthesia: Postop Eval II Evaluation Mental status: Awake and Calm Pain Level: 0 nausea: No Vomiting: No Complications Anesthesia Complication: No
== END 2024-07-04 11:20 | disposition home or self-care (01) ==
LOC: EN 08:40 → AC 08:41
PROVIDERS: PCP Family Medicine; Referring Provider Family Medicine; Visit Provider Surgery
PROC: 0DJD8ZZ Inspection of Lower Intestinal Tract, Via Natural or Artificial Opening Endoscopic (ICD-10-PCS; CPT 45378; principal; 2024-07-04 09:55)
DX: Z12.11 Encounter for screening for malignant neoplasm of colon (principal); K64.8 Other hemorrhoids; K64.4 Residual hemorrhoidal skin tags; D12.4 Benign neoplasm of descending colon
CPT/HCPCS: 45380; 88305; A4216; J2405

== ENCOUNTER → 2024-08-04 | Outpatient (CLI) | payer MEDICARE, OTHER, SELFPAY ==
--- NOTE | 2024-08-04 10:48 | ECHOD_ITS ---
Reason For Study: murmur Procedure This was a 2D Doppler, Color Flow transthoracic echocardiogram. Exam performed in department. Left Ventricle Normal LV size. Left ventricular systolic function is normal. The left ventricular ejection fraction is 65 %. No regional wall motion abnormalities noted. Right Ventricle Normal RV size. Normal systolic function. Atria Normal left atrium. Normal right atrium. Mitral Valve There is mild mitral annular calcification. Moderate focal mitral valve calcification of the posterior leaflet. Tricuspid Valve Normal tricuspid valve. Aortic Valve Trisinus/trileaflet aortic valve. Mild focal aortic valve calcification. Pulmonic Valve Normal pulmonic valve. Great Vessels Normal aortic root. The pulmonary artery is normal size. Inferior vena cava collapse with respiration. Pericardium/Pleural No pericardial effusion. MMode/2D Measurements & Calculations LVIDd: 3.8 cm IVSd: 0.80 cm LVOT diam: 1.9 cm LVIDs: 2.4 cm LVPWd: 0.81 cm LVOT area: 2.8 cm2 RVDd: 2.9 cm FS: 38.1 % _ LAV(MOD-bp): 41.8 ml LVAd ap4: 23.6 cm2 SV(MOD-sp4): 46.9 ml LAV(MOD-bp) Indexed: 28.2 ml/m2 LVLd ap4: 7.6 cm SI(MOD-sp4): 31.7 ml/m2 LAV(MOD-sp2): 39.0 ml EDV(MOD-sp4): 60.5 ml LAV(MOD-sp4): 36.6 ml EDV(sp4-el): 62.2 ml LVAs ap4: 10.1 cm2 LVLs ap4: 6.1 cm ESV(MOD-sp4): 13.6 ml ESV(sp4-el): 14.1 ml EF(MOD-sp4): 77.6 % EF(sp4-el): 77.3 % _ SV(sp4-el): 48.1 ml LA A4 area: 13.4 cm2 LA dimension(2D): 2.7 cm _ RA A4 area: 12.6 cm2 Time Measurements MV dec time: 0.25 sec Doppler Measurements & Calculations MV E max raffi: 102.1 cm/sec Lat Peak E' Raffi: 10.5 cm/sec Med Peak E' Raffi: 10.5 cm/sec MV A max raffi: 98.8 cm/sec E/E' lat: 9.7 E/E' med: 9.7 MV E/A: 1.0 _ MV V2 max: 111.6 cm/sec Ao V2 max: 274.6 cm/sec MV max P.0 mmHg MV dec slope: 411.6 cm/sec2 Ao max P.2 mmHg MV V2 mean: 74.3 cm/sec Ao V2 mean: 197.6 cm/sec MV mean P.5 mmHg Ao mean P.0 mmHg MV V2 VTI: 32.4 cm Ao V2 VTI: 61.7 cm AV (velocity ratio): 0.64 MVA(VTI): 3.5 cm2 JOHNNIE(I,D): 1.8 cm2 JOHNNIE(V,D): 1.8 cm2 _ LV V1 max: 177.1 cm/sec SV(LVOT): 112.9 ml PA V2 max: 117.7 cm/sec LV V1 max P.6 mmHg PA V2 mean: 82.4 cm/sec LV V1 mean P.2 mmHg LV V1 mean: 137.3 cm/sec LV V1 VTI: 39.7 cm ECHO/Echo Complete Interpretation Summary Normal LV size. Left ventricular systolic function is normal. The left ventricular ejection fraction is 65 %. Moderate focal mitral valve calcification of the posterior leaflet. Ordering Physician: Marvin Will Referring Physician: Marvin Will Performed By: Melissa Tamayo RCS
== END | disposition home or self-care (01) ==
LOC: CVS 10:44
PROVIDERS: PCP Family Medicine; Referring Provider Family Medicine; Visit Provider Family Medicine
DX: R01.1 Cardiac murmur, unspecified (principal)
CPT/HCPCS: 93306

== ENCOUNTER → 2024-08-22 | Outpatient (CLI) | payer MEDICARE, OTHER, SELFPAY | END | disposition home or self-care (01) | PROVIDERS: PCP Family Medicine; Referring Provider Family Medicine; Visit Provider Family Medicine | DX: R19.7 Diarrhea, unspecified (principal) | CPT/HCPCS: 87493; 87506 ==

== ENCOUNTER → 2024-09-04 | Outpatient (CLI) | payer MEDICARE, OTHER, SELFPAY ==
[2024-09-04 18:15] LABS: CRP < 3.00 mg/L (0.0-3.0)
[2024-09-07 08:09] LABS: Endomysial Antibody IgA Negative (Negative); Immunoglobulin A 198 mg/dL (87-352); t-Transglutaminase IgA <2 U/mL (0-3)
== END | disposition home or self-care (01) ==
LOC: MTLAB 15:33
PROVIDERS: PCP Family Medicine; Referring Provider Internal Medicine Gastroenterology; Visit Provider Internal Medicine Gastroenterology
DX: R19.7 Diarrhea, unspecified (principal)
CPT/HCPCS: 36415; 82784; 83516; 86140; 86255

== ENCOUNTER → 2024-09-05 | Outpatient (CLI) | payer MEDICARE, OTHER, SELFPAY ==
[2024-09-07 08:09] LABS: Calprotectin, Stool 56 ug/g (0-120)
== END | disposition home or self-care (01) ==
LOC: MTLAB 08:16
PROVIDERS: PCP Family Medicine; Referring Provider Internal Medicine Gastroenterology; Visit Provider Internal Medicine Gastroenterology
DX: R19.7 Diarrhea, unspecified (principal)
CPT/HCPCS: 83993; 87493

== ENCOUNTER → 2024-09-06 | Outpatient (CLI) | payer MEDICARE, OTHER, SELFPAY ==
--- NOTE | 2024-09-06 10:44 | RAD_ITS ---
PROCEDURE: CHEST PA AND LATERAL (RADCXR), 09/06/2024 REASON FOR EXAM: CHEST PAIN TECHNIQUE: PA and lateral views of the chest were obtained. COMPARISON: Portable AP chest radiograph 10/20/2022. No prior CT chest. No prior PA and lateral chest radiographs. FINDINGS: Heart: Unremarkable. Mediastinum: Unremarkable. Lungs/pleura: No question mild lingular/right middle lobe airspace disease inferiorly on the lateral view. No effusion or visible pneumothorax. Bones: Trace to mild thoracolumbar dextroscoliosis. Lines and support devices: None. RAD/Chest PA and Lateral IMPRESSION: 1. Question mild airspace disease in the lingula/right middle lobe. Mild pneum onia is possible, however this distribution raises the possibility of chronic atypical etiologies such as MAC/VANDANA. Consider CT fo r improved delineation. Regardless, recommend radiographic follow-up. Comparison with any available outside imaging may be h elpful. 2. Additional description as above. Reading Location: [id number]
== END | disposition home or self-care (01) ==
LOC: MTRAD 10:44
PROVIDERS: PCP Family Medicine; Referring Provider Family Medicine; Visit Provider Family Medicine
DX: R07.89 Other chest pain (principal)
CPT/HCPCS: 71046

== ENCOUNTER → 2024-09-26 | Outpatient (CLI) | payer MEDICARE, OTHER, SELFPAY ==
--- NOTE | 2024-09-26 17:19 | STRESSREP ---
Stress Test Report Exercise stress test. 69-year-old lady with a history of chest pain Stress protocol: Resting EKG demonstrates normal sinus rhythm with a rate of 76 bpm resting blood pressure is 116/78 mmHg. The patient exercised according to the regular Carlos Enrique protocol for a total duration of 8 minutes attaining a maximum heart rate of 160 bpm which was 105% of maximum predicted heart rate; the maximum workload was 10.1 metabolic equivalents. At rest there were no ST or T wave changes noted to suggest ischemia and at peak exercise upsloping ST changes only were noted which did not meet the criteria for ischemia. No clinical angina was noted the test was terminated due to the target heart rate being achieved/fatigue. The peak blood pressure was 168/88 mmHg. Rate-pressure product was 26,300. Conclusion: Exercise stress test with no EKG criteria for ischemia at a high workload. Good functional aerobic capacity.
== END | disposition home or self-care (01) ==
LOC: CVS 11:26
PROVIDERS: PCP Family Medicine; Referring Provider Family Medicine; Visit Provider Family Medicine
DX: R07.89 Other chest pain (principal)
CPT/HCPCS: 93017

== ENCOUNTER → 2024-10-09 | Outpatient (CLI) | payer MEDICARE, OTHER, SELFPAY ==
--- NOTE | 2024-10-09 13:54 | CT_ITS ---
PROCEDURE: CHEST WITHOUT CONTRAST 10/09/2024 REASON FOR EXAM: ABNORMAL CHEST X RAY TECHNIQUE: Chest CT without contrast. Coronal and Sagittal reconstruction series were provided. One or more dose reduction techniques were used (e.g., Automated exposure control, adjustment of the mA and/or kV according to patient size, use of iterative reconstruction technique RADIATION DOSE SUMMARY: CTDlvol: 6.2 mGy DLP: 217 mGycm COMPARISON: Chest radiographs on 09/06/2024. FINDINGS: Mild cardiomegaly. Bilateral multifocal scarring in the lingula and right middle lobe. Bilateral bronchiectatic changes in the lingula and right middle lobe. Mild bilateral peribronchial interstitial thickening, probably bronchitis. Multifocal centrilobular nodularity in the upper lobes, right middle lobe, lingula and bilateral lower lobes, probably bronchiolitis. Multifocal ground-glass densities are noted in the upper lobes, right middle lobe, lingula and bilateral lower lobes, probably multifocal pneumonia. Scattered simple hepatic cysts are noted with the largest measuring 1.4 cm. No follow-up is needed. No coronary artery calcifications are identified. Left renal fat-containing lesion measuring 1.6 cm, probably benign chronic angiomyolipoma. No follow-up is needed. Normal unenhanced main pulmonary artery and right and left pulmonary arteries. Normal bilateral peripheral pulmonary arteries. Normal thoracic aorta and visualized great vessels. There is no demonstrated aortic aneurysm. Normal pericardium. Normal mediastinum. Normal hilar regions. Normal visualized trachea and thickened bronchi. Normal pleura. Normal chest wall structures. Normal osseous structures. Normal remaining visualized upper abdomen. CT/Chest without Contrast IMPRESSION: 1. Coronary artery calcification (CAC) is absent. 2. Mild cardiomegaly. 3. Bilateral multifocal scarring in the lingula and right middle lobe. 4. Bilateral bronchiectatic changes in the lingula and right middle lobe. 5. Mild bilateral peribronchial interstitial thickening, probably bronchitis. 6. Multifocal centrilobular nodularity in the upper lobes, right middle lobe, l ingula and bilateral lower lobes, probably bronchiolitis. 7. Multifocal ground-glass densities are noted in the upper lobes, right middle lobe, lingula and bilateral lower lobes, probably multifocal pneumonia. 8. Scattered simple hepatic cysts are noted with the largest measuring 1.4 cm. No follow-up is needed. 9. No coronary artery calcifications are identified. 10. Left renal fat-containing lesion measuring 1.6 cm, probably benign chronic angiomyolipoma. No follow-up is needed. Reading Location: [facility]
== END | disposition home or self-care (01) ==
LOC: CT 13:51
PROVIDERS: PCP Family Medicine; Referring Provider Family Medicine; Visit Provider Family Medicine
DX: R93.89 Abnormal findings on diagnostic imaging of other specified body structures (principal)
CPT/HCPCS: 71250

== ENCOUNTER 2024-10-13 14:20 | Outpatient (CLI) | payer MEDICARE, OTHER, SELFPAY ==
[2024-10-13 17:44] LABS: Absolute Lymphocyte Count 1.04 X10^3/uL (0.83-4.51); Absolute Neutrophil Count 4.6 X10^3/uL (2.0-7.7); Basophil# 0.04 X10^3/uL; Basophil% 0.6 % (0-1); Eosinophil# 0.14 X10^3/uL; Eosinophils% 2.2 % (0-5); Hematocrit 42.1 % (37-47); Hemoglobin 14.1 g/dL (12.0-15.0); Lymphocyte # 1.04 X10^3/ul (0.83-4.51); Lymphocyte % 16.5 % (19-41); Mean Corp Hgb Conc 33.5 g/dL (32-36); Mean Corpuscular Hgb 28.1 pg (27.0-32.0); Mean Platelet Vol. 11.4 fl (6.2-12.0); Monocyte# 0.44 X10^3/uL; NRBC Flagged by Analyzer 0 % (0-5); Neutrophil # 4.61 X10^3/uL (2.7-7.7); Neutrophil % 73.4 % (47-70); Platelet Count 320 K/mm3 (150-450); RBC Distribution Width CV 12.7 % (11.6-14.6); RBC Distribution Width SD 38.6 fl (35.1-43.9); Red Blood Count 5.01 M/mm3 (4.2-5.4); White Blood Count 6.3 K/mm3 (4.4-11.0)
[2024-10-13 18:40] LABS: ALB/GLOB Ratio 1.5 RATIO (0.9-2.4); AST(SGOT) 25 U/L (<=31); Alanine Aminotransfer ALT/SGPT 19 U/L (<=34); Albumin, Serum 4.4 g/dL (3.4-4.8); Alkaline Phosphatase 64 U/L (35-104); Anion Gap 11 (5-15); BUN 18 mg/dL (4-19); BUN/Creat Ratio 23.4 RATIO (10-20); Calcium,Total 10.1 mg/dL (7.6-11.0); Carbon Dioxide 24.2 mmol/L (21.0-32.0); Chloride 103 mmol/L (98-108); Creatinine, Serum 0.76 mg/dL (0.70-1.20); EST Glomerular Filtration Rate 85 (>60); Globulin 2.9 g/dL (2.2-4.2); Glucose 100 mg/dL (70-99); Protein, Total 7.3 g/dL (5.9-8.4); Sodium Level 138 mmol/L (133-145); Total Bilirubin 0.39 mg/dL (0.00-1.30)
[2024-10-17 13:08] LABS: QNTFERON TB Mitogen Value 0.82 IU/mL (.); QNTFERON TB Nil Value 0.03 IU/mL (.); QNTFERON TB1+ Ag Value 0.03 IU/mL (.); QNTFERON TB2+ Ag Value 0.04 IU/mL (.); QNTIFERON TB Positive Criteria Negative (Negative)
[2024-10-21 04:07] LABS: Alternaria alternata <0.10 kU/L (Class 0); Aspergillus fumigatus <0.10 kU/L (Class 0); Bahia Grass <0.10 kU/L (Class 0); Bermuda Grass <0.10 kU/L (Class 0); Bluegrass, Kentucky <0.10 kU/L (Class 0); Cat Hair/Dander, Standard <0.10 kU/L (Class 0); Cedar, Mountain <0.10 kU/L (Class 0); Cladosporium herbarum <0.10 kU/L (Class 0); Cockroach, American <0.10 kU/L (Class 0); D farinae Mite <0.10 kU/L (Class 0); D pteronyssinus <0.10 kU/L (Class 0); Dog Epithelia <0.10 kU/L (Class 0); Elm, American White <0.10 kU/L (Class 0); Hazelnut Tree <0.10 kU/L (Class 0); Hickory, White <0.10 kU/L (Class 0); Johnson Grass <0.10 kU/L (Class 0); Maple/Box Elder <0.10 kU/L (Class 0); Mucor racemosus <0.10 kU/L (Class 0); Mugwort <0.10 kU/L (Class 0); Mulberry, White <0.10 kU/L (Class 0); Nettle <0.10 kU/L (Class 0); Oak, White <0.10 kU/L (Class 0); Penicillium chrysogen <0.10 kU/L (Class 0); Pigweed, Rough <0.10 kU/L (Class 0); Plantain, English <0.10 kU/L (Class 0); Ragweed, Short/Common <0.10 kU/L (Class 0); Sheep Sorrel(Dock) <0.10 kU/L (Class 0); Stemphylium herbarum <0.10 kU/L (Class 0); Sweet Gum <0.10 kU/L (Class 0); Sycamore, American <0.10 kU/L (Class 0)
== END 2024-10-13 23:59 | disposition home or self-care (01) ==
LOC: MTLAB 14:21
PROVIDERS: PCP Family Medicine; Referring Provider Family Medicine; Visit Provider Family Medicine
DX: R91.8 Other nonspecific abnormal finding of lung field (principal); K76.0 Fatty (change of) liver, not elsewhere classified
CPT/HCPCS: 36415; 80053; 85025; 86003; 86480

== ENCOUNTER → 2024-10-20 | Outpatient (CLI) | payer MEDICARE, OTHER, SELFPAY | END | disposition home or self-care (01) | LOC: MTLAB 12:32 | PROVIDERS: PCP Family Medicine; Referring Provider Internal Medicine Pulmonary Disease; Visit Provider Internal Medicine Pulmonary Disease | DX: J47.9 Bronchiectasis, uncomplicated (principal) | CPT/HCPCS: 36415; 82784; 82785; 86480 ==

== ENCOUNTER → 2024-10-24 | Outpatient (CLI) | payer MEDICARE, OTHER, SELFPAY ==
--- NOTE | 2024-10-31 08:30 | PET_ITS ---
PROCEDURE: PET/CT TUMOR BASE -THIGH INIT 10/31/2024 REASON FOR EXAM: 69 y/o F with SOLITARY PULMONARY NODULE TECHNIQUE: Following the intravenous administration of radionucleotide, image acquisition on a dedicated PET/CT unit was performed at one hour post injection. A preliminary CT study encompassing the Skull base, neck, chest, abdomen, pelvis, and proximal thighs was performed for purposes of attenuation correction and anatomic localization. The proximal thighs were also included. The patient's blood glucose level was 87 mg/dL (allowable range: 50-180 mg/dL). RADIOPHARMACEUTICAL: 14.341 mCi 18F-FDG (Fluorodeoxyglucose F18) IV was injected into he patient. RADIATION DOSE SUMMARY: Effective Dose: Approximately 7 mSv for a standard whole-body PET scan Organ Doses: Varies by organ, with higher doses typically to the bladder, liver, and brain COMPARISON: COMPARISON FROM CT, PET OR OTHER PERTINENT EXAMS: Chest CT of 10/09/2024. FINDINGS: Physiologic uptake: There may be expected metabolic uptake within the brain, tongue and floor of the mouth and larynx/vocal cords, heart, leonel (many normal individuals have hilar uptake in less than 3 nodes with mildly avid hilar nodes less than 2.7 SUV), liver and spleen, system, and GI tract and symmetric muscle uptake. FDG AVID AND NON-AVID LESIONS. Reported avid SUV values (g/mL*) are maximum SUV. NECK: There are no significant neck abnormalities. CHEST: Chest wall- There are no significant chest wall abnormalities. Axilla- There are no significant axillary abnormalities. Lung parenchyma- Compared with the prior chest CT of 10/09/2024, slight interval improvement in the bilateral ([id number]) lung opacities is seen. In the PET component, no focus of abnormal hypermetabolism is seen. Mediastinum- There are no significant hilar or mediastinal adenopathy. Pleura- There are no significant pleural abnormalities. ABDOMEN: Stomach- No significant abnormalities. Liver- No significant abnormalities. Spleen- No significant abnormalities. Pancrease- No significant abnormalities. Kidneys- No significant abnormalities. Bowel- Normal bowel activity. Spine- No significant abnormalities. PELVIS: Bowel- Normal physiologic bowel activity is identified. Masses- There are no pelvic masses. Bones- With the use of bone window settings, there are no osteolytic or osteoblastic lesions. There are no FDG avid lesions within the visualized portion of the axial skeleton. PET/PET/CT Tumor Base -Thigh Init IMPRESSION: FDG avid- No significant avid lesions. Suspicious- No significant suspicious abnormalities. Other: No additional comments. Please note the low-dose CT scan was performed to facilitate PET image reconstr uction and anatomic localization and does not replace a diagnostic CT. Any diagnostic CT requested and performed at the time of the PET will be reported separately. Reading Location: [place] [id number]
== END | disposition home or self-care (01) ==
PROVIDERS: PCP Family Medicine; Referring Provider Internal Medicine Pulmonary Disease; Visit Provider Internal Medicine Pulmonary Disease
DX: R91.1 Solitary pulmonary nodule (principal); J47.9 Bronchiectasis, uncomplicated; G47.63 Sleep related bruxism; J30.1 Allergic rhinitis due to pollen
CPT/HCPCS: 78815; A9552